=== PATIENT | female | born 1935 | race Caucasian/White ===

== ENCOUNTER 2017-04-14 11:44 | Emergency (ER) | payer BC ==
--- NOTE | 2017-04-14 12:11 | Emergency Department Record ---
History of Present Illness - General Chief Complaint: Back Pain/Injury Stated Complaint: BACK PAIN Time Seen by Provider: 04/14/17 12:00 Source: Patient Mode of Arrival: EMS Limitations: No limitations - History of Present Illness Initial Comments: The patient is here due to back pain for 4 days. The pain onset was after doing a lot of yard work. The pain is an aching pain in the low back and R lower side that is much worse with walking and bending. The pain resolves with lying down. She also has had some numbness and tingling with mild pain to her R leg which started 4 days ago. She is having trouble walking due to the numbness and tingling to the R leg. Presently the pain has resolved. The patient does have a hx of PVD of the R leg and did have a stent placed by Dr. Moore this year in Jun. The patient has only been taking aspirin for pain but has not taken any today. She denies any AP, CP, SOB, JAQUI, trauma or weakness. MD Complaint: Back pain Onset/Timin -: Days(s) Similar Symptoms Previously: Yes Place: Home Radiation: Right leg Severity scale (1-10): 5 Quality: Sharp Improves With: Supine Worsens With: Walking Context: Unknown Associated Symptoms: Denies other symptoms - Related Data Allergies Allergy/AdvReac Type Severity Reaction Status Date / Time No Known Drug Allergies Allergy Verified 06/11/14 15:02 Travel Screening - Travel/Exposure Within Last 30 Days Have you traveled within the last 30 days?: No Review of Systems Constitutional: Denies: Chills, Fever Eyes: Denies: Eye discharge ENT: Denies: Congestion, Throat pain Respiratory: Denies: Cough, Dyspnea Past Medical History - SOCIAL HISTORY Smoking Status: Former smoker Alcohol Use: None Drug Use: None - RESPIRATORY Hx Respiratory Disorders: No - CARDIOVASCULAR Hx Cardio Disorders: Yes Hx Cardiac Cath: Yes (1 stent placed) Hx Heart Attack: Yes - NEURO Hx Neuro Disorders: No - GI Hx GI Disorders: No - Hx Genitourinary Disorders: No - ENDOCRINE Hx Endocrine Disorders: Yes Hx Thyroid Disease: Yes - MUSCULOSKELETAL Hx Musculoskeletal Disorders: Yes Hx Arthritis: Yes - PSYCH Hx Psych Problems: No - HEMATOLOGY/ONCOLOGY Hx Hematology/Oncology Disorders: Yes Hx Cancer: Yes (Cervical) Family Medical History Any Significant Family History?: Yes Hx Cancer: Brother/Sister Hx Diabetes: Brother/Sister *Diabetes Comment: sister DM Hx Heart Disease: Brother/Sister *Heart Comment: sister and brother Hx Stroke: Father Physical Exam - General General Appearance: Alert, Oriented x3, Cooperative, No acute distress - Head Head exam: Atraumatic, Normocephalic - Eye Eye exam: Normal appearance, PERRL - Neck Neck exam: Normal inspection, Full ROM. negative: Tenderness - Respiratory Respiratory exam: Normal lung sounds bilaterally. negative: Respiratory distress - Cardiovascular Cardiovascular Exam: Regular rate, Normal rhythm, Normal heart sounds - GI/Abdominal GI/Abdominal exam: Soft, Normal bowel sounds. negative: Tenderness - Extremities Extremities exam: Other (The R lower leg is mildly numb to light touch and very cool up to the proximal tibial area.). negative: Normal inspection (The R leg is missing part of the foot due to a previous surgery. ), Normal capillary refill Course Vital Signs 04/14/17 11:46 Temperature 97.7 F Pulse Rate 81 Respiratory 20 Rate Blood Pressure 124/61 Pulse Ox 95 - Reevaluation(s) Reevaluation #1: The patient is back from US and the R leg is still painful and slightly numb. The sensation is decreased below the knee and the leg is still cool. The Arterial Doppler test does reveal a problem with the arterial flow below the graft. Because of that the patient will be started on Heparin and be kept NPO and will be transferred to the [place] at [facility] [place]. I did discuss the case with Dr. Byrd and she does accept the transfer to the ER. 04/14/17 14:07 Medical Decision Making - Data Complexity MDM Data: Labs Ordered and/or Reviewed, X-Ray Ordered and/or Reviewed - Lab Data Result diagrams: 04/14/17 12:30 04/14/17 12:30 - Radiology Data Radiology results: Report reviewed (Lumbar spine: Extensive DJD R leg arterial study: Significant decreased arterial flow to the R leg below the graft site.) Disposition Disposition: Transfer Clinical Impression: Vascular insufficiency of limb Disposition: Acute Care Hospital Transfer Transfer To: [facility] Reason For Transfer: Vascular surgery Accepting Physician: Carson Time Discussed w/Accepting Physician: 14:10 Condition: (2) Stable Forms: Patient Portal Access Time of Disposition: 14:10 Quality - Quality Measures Quality Measures: N/A - Blood Pressure Screening View Details: Yes Does Patient Have Any of the Following: No Blood Pressure Classification: Pre-Hypertensive BP Reading Systolic Measurement: 124 Diastolic Measurement: 61 Screening for High Blood Pressure: < Pre-Hypertensive BP, F/U Documented > [ G8950] Pre-Hypertensive Follow-up Interventions: Referral to alternative/primary care provider.
[2017-04-14] MEDS: MORPHINE SULFATE 5 MG/ML PFS IVP ONE ×2 (12:29→14:08)
[2017-04-14] MEDS: ONDANSETRON HCL IV 4 MG/2 ML VIAL IVP ONE (12:30)
[2017-04-14 12:42] LABS: BASO % 0.4 % (0-6); EOS % 1.8 % (0-6); HEMATOCRIT 39.5 % (35.0-47.0); HEMOGLOBIN 12.8 gm/dl (11.6-16.0); LYMPH % 13.6 % (16-45); MEAN CELL VOLUME 87.6 fl (81-97); MEAN CORPUSCULAR HEMOGLOBIN 28.4 pg (27-33); MEAN CORPUSCULAR HGB CONC 32.4 g/dl (32-36); MEAN PLATELET VOLUME 10.3 fl (7.4-10.4); MONO % 10.2 % (0-9); PLATELET COUNT 184 K/uL (130-400); RED BLOOD COUNT 4.51 M/uL (3.80-5.40); RED CELL DISTRIBUTION WIDTH 14.3 % (11.5-14.5); WHITE BLOOD COUNT W/O DIFF 5.7 K/uL (4.2-12.2)
[2017-04-14 12:54] LABS: BLOOD UREA NITROGEN 15 mg/dL (8-23); CREATININE 0.4 mg/dL (0.5-0.9); EST GLOMERULAR FILTRATION RATE > 60 mL/min; GLUCOSE,RANDOM 105 mg/dL (74-109); INR 1.04; PARTIAL THROMBOPLASTIN TIME 28.6 SECONDS (24.5-39.1); PROTHROMBIN TIME (PATIENT) 11.2 SECONDS (9.5-12.1)
[2017-04-14] MEDS: HEPARIN SODIUM/D5W 25,000 UNITS/500 ML BAG IV SCH (14:08)
[2017-04-14] MEDS: HEPARIN SODIUM 1000 UNIT/1 ML 10ML VIAL IVP ONE (14:08)
--- NOTE | 2017-04-15 08:55 | RADIOLOGY REPORT ---
EXAM: LUMBAR SPINE HISTORY: BACK PAIN. TECHNIQUE: Frontal and lateral views of the lumbar spine were obtained. Comparison: None. FINDINGS: Five non-rib bearing lumbar type vertebral bodies. Dextroconvex scoliosis. The vertebral body height is preserved. Minor anterolisthesis of L4 with respect to L5 likely secondary to advanced facet arthropathy at this level. End plate degenerative changes with facet arthropathy and osteophytic spurring throughout the lumbar spine. Vascular calcifications. Right iliac endovascular stent graft in place. IMPRESSION: DEXTROCONVEX SCOLIOSIS. DIFFUSE DEGENERATIVE CHANGE, GREATEST AT THE L4-L5 LEVEL, ABOVE. [facility] [id number] [facility]
--- NOTE | 2017-04-15 09:34 | US UNI ARTERIAL DOPPLER REPORT ---
EXAM: RIGHT LOWER EXTREMITY ARTERIAL DOPPLER ULTRASOUND HISTORY: NUMBNESS AND TINGLING. TECHNIQUE: Transverse and longitudinal sonographic images of the right lower extremity arterial system. Doppler and spectral analysis with color flow was utilized. Comparison: None. FINDINGS: The patient is status post right femoral endovascular stent placement. Doppler and spectral analysis with color flow shows lack of normal waveforms throughout the visualized right femoral artery and including the remainder of the right lower extremity arterial system. No visible areas of normal flow through the stent and to the right lower extremity. Findings likely relate to complete occlusion. This could be confirmed with CTA. Minimal flow is identified in the right common femoral artery, with monophasic waveform and the right profunda artery. IMPRESSION: STATUS POST RIGHT LOWER EXTREMITY ENDOVASCULAR STENT PLACEMENT WITH LACK OF NORMAL FLOW THROUGH THE STENT, WORRISOME FOR COMPLETE OCCLUSION. JOB NUMBER: [id number] [facility]
== END 2017-04-14 14:32 | disposition short-term general hospital (02) ==
LOC: ER 11:44
DX: I74.3 Embolism and thrombosis of arteries of the lower extremities (principal); M54.5 Low back pain; R20.0 Anesthesia of skin; E11.9 Type 2 diabetes mellitus without complications; I25.2 Old myocardial infarction; Z89.431 Acquired absence of right foot; Z87.891 Personal history of nicotine dependence
CPT/HCPCS: 99285 ×2; 96376; 96365; 96375; 85025; 85730; 85610; 80048; 72100; 93926; J2405; J2270

== ENCOUNTER 2017-07-18 02:03 | Emergency (ER) | payer BC ==
--- NOTE | 2017-07-18 02:16 | Emergency Department Record ---
History of Present Illness - General Chief Complaint: Cough Stated Complaint: COUGH Time Seen by Provider: 07/18/17 02:10 Source: Patient Mode of Arrival: EMS Limitations: No limitations - History of Present Illness Initial Comments: 82 yo female presents to ED for evaluation of cough symptoms x 1 week. Patient denies fevers, chills, nausea, or vomiting symptoms. Patient denies previous heart or lung problems. Patient is also concerned about injury to her left foot earlier this morning resulting in pain symptoms with movement. MD Complaint: Cough Onset/Timin -: Week(s) Severity: Moderate Consistency: Intermittent Improves With: Nothing Worsens With: Deep breaths Associated Symptoms: Denies other symptoms Treatments Prior to Arrival: None - Related Data Home Medications Medication Instructions Recorded Confirmed Last Taken Atorvastatin Calcium 40 mg PO QHS 07/18/17 07/18/17 Unknown Diltiazem HCl [Diltiazem ER] 180 mg PO DAILY 07/18/17 07/18/17 Unknown Fentanyl 12 mcg TD Q72H 07/18/17 07/18/17 Unknown Gabapentin [Neurontin] 400 mg PO TID 07/18/17 07/18/17 Unknown Hydrocodone/Acetaminophen [[place] 1 tab PO Q8H PRN 07/18/17 07/18/17 Unknown 5mg/325mg] Pantoprazole Sodium 40 mg PO DAILY 07/18/17 07/18/17 Unknown Previous Rx's Medication Instructions Recorded Doxycycline Hyclate 100 mg PO BID #18 tab. 07/18/17 Allergies Allergy/AdvReac Type Severity Reaction Status Date / Time No Known Drug Allergies Allergy Verified 06/11/14 15:02 Review of Systems Constitutional: Denies: Chills, Fever, Malaise, Night sweats Eyes: Denies: Eye discharge, Eye pain ENT: Denies: Congestion, Ear pain Respiratory: Reports: Cough. Denies: Dyspnea Cardiovascular: Reports: Edema. Denies: Chest pain Endocrine: Denies: Fatigue, Heat or cold intolerance Gastrointestinal: Denies: Abdominal pain, Nausea, Vomiting Genitourinary: Denies: Incontinence, Retention Musculoskeletal: Reports: Arthralgia (left foot pain). Denies: Back pain, Gout , Joint swelling Skin: Denies: Bruising, Change in color Neurological: Denies: Abnormal gait, Confusion, Seizure Psychiatric: Denies: Anxiety Hematological/Lymphatic: Denies: Anemia, Blood Clots Past Medical History - SOCIAL HISTORY Smoking Status: Former smoker Drug Use: None - RESPIRATORY Hx Respiratory Disorders: No - CARDIOVASCULAR Hx Cardio Disorders: Yes Hx Cardiac Cath: Yes (1 stent placed) Hx Heart Attack: Yes - NEURO Hx Neuro Disorders: No - GI Hx GI Disorders: No - Hx Genitourinary Disorders: No - ENDOCRINE Hx Endocrine Disorders: Yes Hx Thyroid Disease: Yes - MUSCULOSKELETAL Hx Musculoskeletal Disorders: Yes Hx Arthritis: Yes - PSYCH Hx Psych Problems: No - HEMATOLOGY/ONCOLOGY Hx Hematology/Oncology Disorders: Yes Hx Cancer: Yes (Cervical) Family Medical History Hx Cancer: Brother/Sister Hx Diabetes: Brother/Sister *Diabetes Comment: sister DM Hx Heart Disease: Brother/Sister *Heart Comment: sister and brother Hx Stroke: Father Physical Exam - General General Appearance: Alert, Oriented x3, Cooperative, No acute distress, Other ( talkative on examination) Limitations: No limitations - Head Head exam: Atraumatic, Normocephalic, Normal inspection Head exam detail: negative: Abrasion, Contusion, Noland's sign, General tenderness, Hematoma, Laceration - Eye Eye exam: Normal appearance. negative: Conjunctival injection, Periorbital swelling, Periorbital tenderness, Scleral icterus - ENT Ear exam: negative: Auricular hematoma, Auricular trauma Nasal Exam: negative: Active bleeding, Discharge, Dried blood, Foreign body Mouth exam: negative: Drooling, Laceration, Muffled voice, Tongue elevation - Neck Neck exam: Normal inspection. negative: Meningismus, Tenderness - Respiratory Respiratory exam: Normal lung sounds bilaterally. negative: Rales, Respiratory distress, Rhonchi, Stridor - Cardiovascular Cardiovascular Exam: Regular rate, Normal rhythm, Normal heart sounds - GI/Abdominal GI/Abdominal exam: Soft. negative: Rebound, Rigid, Tenderness - Rectal Rectal exam: Deferred - exam: Deferred - Extremities Extremities exam: Pedal edema. negative: Calf tenderness, Tenderness - Back Back exam: Denies: CVA tenderness (R), CVA tenderness (L) - Neurological Neurological exam: Alert, Oriented X3. negative: Motor sensory deficit - Psychiatric Psychiatric exam: Normal affect, Normal mood - Skin Skin exam: Normal color. negative: Abrasion Type of lesion: negative: abrasion Course - Reevaluation(s) Reevaluation #1: 07/18/17 02:25 EKG: NSR 94 Normal axis, normal intervals No acute ST-T wave changes Reevaluation #2: 07/18/17 02:53 Left Foot: Degenerative changes, nothing acute CXR: No acute process Reevaluation #3: 07/18/17 03:04 Labs reviewed, WBC 10.6 with 94% Neutrophils, BNP 835. Influenza negative, labs are otherwise grossly unremarkable for an acute process. Will initiate treatment for URI symptoms with Doxycycline as directed. Patient is otherwise well appearing, very talkative with no respiratory distress, and appears stable for discharge at this time. Medical Decision Making - Lab Data Result diagrams: 07/18/17 02:28 07/18/17 02:28 Disposition Disposition: Discharge Clinical Impression: URI (upper respiratory infection) Qualifiers: URI type: unspecified URI Qualified Code(s): J06.9 - Acute upper respiratory infection, unspecified Disposition: Home, Self-Care Condition: (2) Stable Instructions: Upper Respiratory Infection (ED) Additional Instructions: Return to ED if your symptoms worsen or if you have any concerns. Doxycycline as directed. Follow-up with your family doctor in 1-3 days as directed. Prescriptions: Doxycycline Hyclate 100 mg PO BID #18 tab.dr Forms: Patient Portal Access Time of Disposition: 03:08 Quality - Quality Measures Quality Measures: N/A - Blood Pressure Screening Does Patient Have Any of the Following: Active Dx of HTN Blood Pressure Classification: Hypertensive Reading Systolic Measurement: 173 Diastolic Measurement: 75 Screening for High Blood Pressure: Patient Exclusion, Hx of HTN [G9744]
[2017-07-18 02:32] LABS: INFLUENZA A NEGATIVE (NEGATIVE); INFLUENZA B NEGATIVE (NEGATIVE)
[2017-07-18 02:36] LABS: BASO % 0.1 % (0-6); EOS % 0.6 % (0-6); HEMATOCRIT 38.1 % (35.0-47.0); LYMPH % 5.4 % (16-45); MEAN CELL VOLUME 83.4 fl (81-97); MEAN CORPUSCULAR HEMOGLOBIN 26.3 pg (27-33); MEAN CORPUSCULAR HGB CONC 31.5 g/dl (32-36); MEAN PLATELET VOLUME 8.8 fl (7.4-10.4); MONO % 6.9 % (0-9); PLATELET COUNT 342 K/uL (130-400); RED BLOOD COUNT 4.57 M/uL (3.80-5.40); RED CELL DISTRIBUTION WIDTH 14.4 % (11.5-14.5); WHITE BLOOD COUNT W/O DIFF 10.6 K/uL (4.2-12.2)
[2017-07-18 02:46] LABS: BLOOD UREA NITROGEN 11 mg/dL (8-23); CREATININE 0.3 mg/dL (0.5-0.9); EST GLOMERULAR FILTRATION RATE > 60 mL/min
[2017-07-18 02:47] LABS: TOTAL PROTEIN 7.2 g/dL (6.6-8.7)
[2017-07-18 02:49] LABS: GLUCOSE,RANDOM 118 mg/dL (74-109)
[2017-07-18 02:52] LABS: ALB/GLOB RATIO 1.1 (1.1-1.8); ALBUMIN 3.8 g/dL (4.0-5.0); ALKALINE PHOSPHATASE 107 U/L (35-104); ALT/SGPT 7 U/L (<33); AST/SGOT 11 U/L (10.0-35.0)
[2017-07-18] MEDS ORDERED: DOXYCYCLINE HYCLATE 100 MG CAPSULE PO ONE (03:31)
--- NOTE | 2017-07-19 07:40 | RADIOLOGY REPORT ---
EXAM: CHEST, TWO VIEWS HISTORY: PATIENT HAS A SEVERE COUGH. TECHNIQUE: Two views of the chest were provided along with the comparison study dated 06/11/14. FINDINGS: Cardiomegaly is noted. Calcified hilar lymph nodes are identified. Calcified granuloma within the right mid lung field is unchanged with respect to the prior examination. There is no radiographic evidence of a focal infiltrate, pleural effusion, or pneumothorax. Chronic interstitial changes are identified bilaterally. There are findings suggestive of a hiatal hernia. IMPRESSION: STABLE CARDIOMEGALY WITH RESPECT TO THE PRIOR EXAMINATION. J[facility]BER: [id number] [facility]
--- NOTE | 2017-07-19 07:43 | RADIOLOGY REPORT ---
EXAM: LEFT FOOT HISTORY: PATIENT HAS CHRONIC PAIN. TECHNIQUE: Two views of the left foot dated 07/18/17 are provided without comparison examination. FINDINGS: There is no radiographic evidence of a fracture or dislocation of the left foot. Osteopenia of the osseous structures is noted. There is mild to moderate joint space loss with marginal osteophyte formation at the metatarsal phalangeal and interphalangeal joints compatible with osteoarthritic changes. IMPRESSION: OSTEOARTHRITIC CHANGES OF THE LEFT FOOT ARE NOTED WITHOUT RADIOGRAPHIC EVIDENCE OF AN ACUTE PROCESS INVOLVING THE LEFT FOOT. [facility]: [id number] [facility]
== END 2017-07-18 03:38 | disposition home or self-care (01) ==
LOC: ER 02:03
DX: J06.9 Acute upper respiratory infection, unspecified (principal); R05 Cough; M79.672 Pain in left foot; I25.2 Old myocardial infarction; I10 Essential (primary) hypertension; F17.210 Nicotine dependence, cigarettes, uncomplicated
CPT/HCPCS: 71046; 80053; 83880; 85027; 87400; 93005; 93010; 99284

== ENCOUNTER 2018-06-08 06:15 | Inpatient (IN) | payer BC ==
--- NOTE | 2018-06-08 06:38 | Emergency Department Record ---
History of Present Illness - General Chief Complaint: Cough Stated Complaint: COUGHING UP PHLEGM Time Seen by Provider: 06/08/18 06:27 Source: Patient Mode of Arrival: Ambulatory Limitations: No limitations - History of Present Illness Initial Comments: 83 yo female presents to ED for evaluation of weakness symptoms over the past 5 days associated with shortness of breath and cough symptoms. Patient reports increased fatigue and decreased appetite as well. 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 Patient denies chest pain or discomfort symptoms. MD Complaint: Cough Onset/Timin -: Minutes(s) Severity: Moderate Consistency: Constant, Getting worse Improves With: Nothing Worsens With: Activity Associated Symptoms: Cough, Shortness of breath Treatments Prior to Arrival: None - Related Data Home Medications Medication Instructions Recorded Confirmed Last Taken Ergocalciferol (Vitamin D2) 50,000 unit PO MONTHLY 06/08/18 06/08/18 Unknown [Vitamin D2] Gabapentin [Neurontin] 100 mg PO TID 06/08/18 06/08/18 Unknown Herb-Lax 4 tab PO DAILY 06/08/18 06/08/18 Unknown Prebiotic 500 1 tab PO DAILY 06/08/18 06/08/18 Unknown Visionary Vitamin 2 tab PO DAILY 06/08/18 06/08/18 Unknown Allergies Allergy/AdvReac Type Severity Reaction Status Date / Time No Known Drug Allergies Allergy Verified 06/11/14 15:02 Travel Screening - Travel/Exposure Within Last 30 Days Have you traveled within the last 30 days?: No Review of Systems Constitutional: Reports: Malaise, Weakness. Denies: Chills, Fever, Night sweats Eyes: Denies: Eye discharge, Eye pain ENT: Denies: Congestion, Ear pain, Epistaxis Respiratory: Reports: Cough, Dyspnea. Denies: Wheezes Cardiovascular: Reports: Dyspnea on exertion. Denies: Chest pain, Edema Endocrine: Reports: Fatigue. Denies: Heat or cold intolerance Gastrointestinal: Denies: Abdominal pain, Nausea, Vomiting Genitourinary: Denies: Incontinence, Retention Musculoskeletal: Denies: Arthralgia, Back pain Skin: Denies: Bruising, Change in color Neurological: Denies: Abnormal gait, Confusion, Headache, Seizure Psychiatric: Denies: Anxiety Hematological/Lymphatic: Denies: Anemia, Blood Clots Past Medical History - SOCIAL HISTORY Smoking Status: Former smoker Alcohol Use: None Drug Use: None - RESPIRATORY Hx Respiratory Disorders: No - CARDIOVASCULAR Hx Cardio Disorders: Yes Hx Cardiac Cath: Yes (1 stent placed) Hx Heart Attack: Yes - NEURO Hx Neuro Disorders: No - GI Hx GI Disorders: No - Hx Genitourinary Disorders: No - ENDOCRINE Hx Endocrine Disorders: Yes Hx Thyroid Disease: Yes - MUSCULOSKELETAL Hx Musculoskeletal Disorders: Yes Hx Arthritis: Yes - PSYCH Hx Psych Problems: No - HEMATOLOGY/ONCOLOGY Hx Hematology/Oncology Disorders: Yes Hx Cancer: Yes (Cervical) Family Medical History Any Significant Family History?: Yes Hx Cancer: Brother/Sister Hx Diabetes: Brother/Sister *Diabetes Comment: sister DM Hx Heart Disease: Brother/Sister *Heart Comment: sister and brother Hx Stroke: Father Physical Exam - General General Appearance: Alert, Oriented x3, Cooperative, Moderate distress (Patient' s RA oxygen saturation 74% on arrival) Limitations: No limitations - Head Head exam: Atraumatic, Normocephalic, Normal inspection Head exam detail: negative: Abrasion, Contusion, Noland's sign, General tenderness, Hematoma, Laceration - Eye Eye exam: Normal appearance. negative: Conjunctival injection, Periorbital swelling, Periorbital tenderness, Scleral icterus - ENT Ear exam: negative: Auricular hematoma, Auricular trauma Nasal Exam: negative: Active bleeding, Discharge, Dried blood, Foreign body Mouth exam: negative: Drooling, Laceration, Muffled voice, Tongue elevation - Neck Neck exam: Normal inspection. negative: Meningismus, Tenderness - Respiratory Respiratory exam: Decreased breath sounds. negative: Rales, Respiratory distress, Rhonchi, Stridor - Cardiovascular Cardiovascular Exam: Regular rate, Normal rhythm, Normal heart sounds - GI/Abdominal GI/Abdominal exam: Soft. negative: Rebound, Rigid, Tenderness - Rectal Rectal exam: Deferred - exam: Deferred - Extremities Extremities exam: Other (BKA right). negative: Pedal edema, Tenderness - Back Back exam: Denies: CVA tenderness (R), CVA tenderness (L) - Neurological Neurological exam: Alert, Oriented X3. negative: Motor sensory deficit - Psychiatric Psychiatric exam: Normal affect, Normal mood - Skin Skin exam: Normal color. negative: Abrasion Type of lesion: negative: abrasion Course Vital Signs 06/08/18 06/08/18 06:18 06:24 Temperature 98.5 F Pulse Rate [ 99 H Pulse Ox Probe] Respiratory 28 H Rate Blood Pressure 139/61 [Left Arm] Pulse Ox 74 L 94 L - Reevaluation(s) Reevaluation #1: 06/08/18 06:55 EKG: NSR 96 Normal axis, normal intervals No acute ST-T wave changes Reevaluation #2: 06/08/18 06:56 Hgb reported to be 8.9, previous 07/08 12.0. Type and screen ordered. WBC 12.3. Troponin 0.055 BNP 2628 Reevaluation #3: 06/08/18 07:12 CXR: Cardiomegaly Probable CHF Reevaluation #4: 06/08/18 07:32 Case was discussed with Dr. Pagan, will accept admission at this time. Will hold antibiotics pending CXR interpretation. Medical Decision Making - Lab Data Result diagrams: 06/08/18 06:35 06/08/18 06:35 Disposition Disposition: Admit Clinical Impression: Elevated troponin Anemia Qualifiers: Anemia type: unspecified type Qualified Code(s): D64.9 - Anemia, unspecified CHF (congestive heart failure) Qualifiers: Heart failure type: unspecified Heart failure chronicity: acute Qualified Code( s): I50.9 - Heart failure, unspecified Disposition: Still a Patient at [facility] Decision to Admit: Admit from ER Decision to Admit Date: 06/08/18 Decision to Admit Time: 07:33 Condition: (2) Stable Forms: Patient Portal Access Time of Disposition: 07:33 Quality - Quality Measures Quality Measures: N/A - Blood Pressure Screening Does Patient Have Any of the Following: Active Dx of HTN Blood Pressure Classification: Pre-Hypertensive BP Reading Systolic Measurement: 131 Diastolic Measurement: 55 Screening for High Blood Pressure: Patient Exclusion, Hx of HTN [G9744]
[2018-06-08 06:45] LABS: HEMATOCRIT 33.5 % (35.0-47.0); HEMOGLOBIN 8.9 gm/dl (11.6-16.0); MEAN CELL VOLUME 76.8 fl (81-97); MEAN CORPUSCULAR HEMOGLOBIN 20.4 pg (27-33); MEAN CORPUSCULAR HGB CONC 26.6 g/dl (32-36); MEAN PLATELET VOLUME 9.4 fl (7.4-10.4); PLATELET COUNT 256 K/uL (130-400); RED BLOOD COUNT 4.36 M/uL (3.80-5.40); RED CELL DISTRIBUTION WIDTH 19.4 % (11.5-14.5); WHITE BLOOD COUNT W/O DIFF 12.3 K/uL (4.2-12.2)
[2018-06-08 06:54] LABS: BLOOD UREA NITROGEN 23 mg/dL (8-23); CREATININE 0.5 mg/dL (0.5-0.9); EST GLOMERULAR FILTRATION RATE > 60 mL/min; HYPOCHROMIA 1+
[2018-06-08 06:55] LABS: TOTAL PROTEIN 7.4 g/dL (6.6-8.7)
[2018-06-08 06:57] LABS: GLUCOSE,RANDOM 130 mg/dL (74-109)
[2018-06-08 06:59] LABS: ALT/SGPT 18 U/L (<33); AST/SGOT 19 U/L (10.0-35.0)
[2018-06-08 07:00] LABS: ALB/GLOB RATIO 1.2 (1.1-1.8); ALBUMIN 4.1 g/dL (4.0-5.0); ALKALINE PHOSPHATASE 158 U/L (35-104)
[2018-06-08] MEDS ORDERED: ASPIRIN 81 MG CHEWABLE TABLET PO ONE (07:29)
[2018-06-08 07:46] LABS: ABO GROUP A; ANTIBODY SCREEN NEGATIVE (NEGATIVE); RH TYPE POSITIVE
[2018-06-08] MEDS ORDERED: 0.9 % SODIUM CHLORIDE 1000ML 1,000 ML IV PRN (08:54)
[2018-06-08] MEDS ORDERED: HYDROCODONE/APAP 5/325MG TABLET PO PRN (08:54)
[2018-06-08] MEDS: PANTOPRAZOLE SODIUM 40 MG TABLET PO SCH (10:44)
[2018-06-08] MEDS: GABAPENTIN 300 MG CAPSULE PO SCH ×2 (10:44→21:54)
[2018-06-08] MEDS: CLOPIDOGREL 75MG TABLET PO SCH (10:44)
[2018-06-08] MEDS: DILTIAZEM 180MG CR CAPSULE PO SCH (10:44)
[2018-06-08] MEDS: LEVOTHYROXINE SODIUM 25 MCG TABLET PO SCH (10:44)
[2018-06-08] MEDS: GABAPENTIN 100 MG CAPSULE PO SCH ×2 (10:45→21:54)
--- NOTE | 2018-06-08 10:59 | History & Physical ---
History of Present Illness - Date of Service Date of Service for History & Physical: 06/08/18 - History of Present Illness Admitting Diagnosis: Moderate Anemia. Elevated troponin. Congestive wilkerson failure History of Present Illness: Mrs Wren is a 83 y/o female who came in due to worsening cough and shortness of breath beginning last . The patient says her symptoms initially began with becoming short of breath while lying flat. She says that she couldn' t lay flat and had to prop herself up on pillows. She then started to have a cough productive of yellow/white sputum which eventually got worse over the past three days. She also noted that she had a loss of appetite but denies fevers, chills or chest pain. The patient says that she has had heart stent placed but has no history of heart failure. She also notes a 40 pack year smoking history quitting in 2004 but has never been diagnosed with COPD. On arrival to the ED the patient had oxygen saturation at 74 % and required nasal cannula oxygen of 5 liters to sustained saturations > 90%. Chest xray was suggestive of interstitial and vascular markings and the right mid lung shows an opacified area. Her labs show mild elevation of WBCs 12.3, Hgb 0.055, BNP 2, 628, and a normal EKG. The patient is admitted for serial troponins, and cardiac workup. PCP: Dr. Chen Travel Screening - Travel/Exposure Within Last 30 Days Have you traveled within the last 30 days?: No - Travel/Exposure Within Last Year Have you traveled outside the [place] in the last year?: No - Additonal Travel Details Have you been exposed to anyone with a communicable illness?: No - Travel Symptoms Symptom Screening: None Review of Systems Constitutional: Reports: Malaise, Weakness. Denies: Chills, Fever, Night sweats Eyes: Denies: Eye discharge, Eye pain ENT: Denies: Congestion, Ear pain, Epistaxis Respiratory: Reports: Cough, Dyspnea. Denies: Wheezes Cardiovascular: Reports: Dyspnea on exertion. Denies: Chest pain, Edema Endocrine: Reports: Fatigue. Denies: Heat or cold intolerance Gastrointestinal: Denies: Abdominal pain, Nausea, Vomiting Genitourinary: Denies: Incontinence, Retention Musculoskeletal: Denies: Arthralgia, Back pain Skin: Denies: Bruising, Change in color Neurological: Denies: Abnormal gait, Confusion, Headache, Seizure Psychiatric: Denies: Anxiety Hematological/Lymphatic: Denies: Anemia, Blood Clots Past Medical History - SOCIAL HISTORY Smoking Status: Former smoker - RESPIRATORY Hx Respiratory Disorders: No - CARDIOVASCULAR Hx Cardio Disorders: Yes Hx Cardiac Cath: Yes (1 stent placed) Hx Heart Attack: Yes - NEURO Hx Neuro Disorders: No - GI Hx GI Disorders: No - Hx Genitourinary Disorders: No - ENDOCRINE Hx Endocrine Disorders: Yes Hx Thyroid Disease: Yes - MUSCULOSKELETAL Hx Musculoskeletal Disorders: Yes Hx Arthritis: Yes - PSYCH Hx Psych Problems: No - HEMATOLOGY/ONCOLOGY Hx Hematology/Oncology Disorders: Yes Hx Cancer: Yes (Cervical) Family Medical History Any Significant Family History?: Yes Hx Cancer: Brother/Sister Hx Diabetes: Brother/Sister *Diabetes Comment: sister DM Hx Heart Disease: Brother/Sister *Heart Comment: sister and brother Hx Stroke: Father H&P Meds/Allergies - Allergies Allergies: Allergies Allergy/AdvReac Type Severity Reaction Status Date / Time No Known Drug Allergies Allergy Verified 06/11/14 15:02 - Home Medications Home Medications Medication Instructions Recorded Confirmed Last Taken Ergocalciferol (Vitamin D2) 50,000 unit PO MONTHLY 06/08/18 06/08/18 Unknown [Vitamin D2] Gabapentin [Neurontin] 100 mg PO TID 06/08/18 06/08/18 Unknown Herb-Lax 4 tab PO DAILY 06/08/18 06/08/18 Unknown Prebiotic 500 1 tab PO DAILY 06/08/18 06/08/18 Unknown Visionary Vitamin 2 tab PO DAILY 06/08/18 06/08/18 Unknown - Active Medications Active Medications: Current Medications Hydrocodone Bitart/Acetaminophen ([place] 5mg/325mg) 1 each PO Q8H PRN PRN Reason: PAIN - MOD TO SEVERE (5-10) Aspirin (Ecotrin (Ec)) 325 mg PO DAILY [facility] Atorvastatin Calcium (Lipitor) 40 mg PO QHS [facility] Azithromycin (Zithromax) 500 mg PO DAILY [facility] Clopidogrel Bisulfate (Plavix) 75 mg PO DAILY [facility] Last Admin: 06/08/18 10:44 Dose: 75 mg Diltiazem HCl (Cardizem Cd) 180 mg PO DAILY [facility] Last Admin: 06/08/18 10:44 Dose: 180 mg Gabapentin (Neurontin) 300 mg PO BID [facility] Last Admin: 06/08/18 10:44 Dose: 300 mg Gabapentin (Neurontin) 200 mg PO BID [facility] Last Admin: 06/08/18 10:45 Dose: 200 mg Sodium Chloride () 1,000 mls @ 15 mls/hr IV .Q24H PRN PRN Reason: LARGE VOLUME IV Ceftriaxone Sodium 1 gm/ (Sodium Chloride) 100 mls @ 200 mls/hr IVPB Q24H [facility] Stop: 06/13/18 11:01 Levothyroxine Sodium (Synthroid) 25 mcg PO DAILYTHY [facility] Last Admin: 06/08/18 10:44 Dose: 25 mcg Pantoprazole Sodium (Protonix) 40 mg PO DAILYAC [facility] Last Admin: 06/08/18 10:44 Dose: 40 mg Physical Exam - Vital Signs Vital Signs: Vital Signs - Last 24 Hrs Temp Pulse Pulse Resp BP BP Pulse Ox 06/08/18 09:00 20 06/08/18 08:36 102 H 18 117/70 92 L 06/08/18 08:25 98.3 F 91 H 20 124/51 95 06/08/18 07:20 97 H 28 H 131/55 98 06/08/18 06:24 98.5 F 99 H 28 H 139/61 94 L 06/08/18 06:18 74 L - General General Appearance: Alert, Oriented x3, Cooperative, Moderate distress (Patient' s RA oxygen saturation 74% on arrival) Limitations: No limitations - Head Head exam: Atraumatic, Normocephalic, Normal inspection Head exam detail: negative: Abrasion, Contusion, Noland's sign, General tenderness, Hematoma, Laceration - Eye Eye exam: Normal appearance. negative: Conjunctival injection, Periorbital swelling, Periorbital tenderness, Scleral icterus - ENT Ear exam: negative: Auricular hematoma, Auricular trauma Nasal Exam: negative: Active bleeding, Discharge, Dried blood, Foreign body Mouth exam: negative: Drooling, Laceration, Muffled voice, Tongue elevation - Neck Neck exam: Normal inspection. negative: Meningismus, Tenderness - Respiratory Respiratory exam: Decreased breath sounds. negative: Rales, Respiratory distress, Rhonchi, Stridor - Cardiovascular Cardiovascular Exam: Regular rate, Normal rhythm, Normal heart sounds Peripheral Pulses: 3+: Radial (R), Radial (L), Dorsalis Pedis (R), Dorsalis Pedis (L) - GI/Abdominal GI/Abdominal exam: Soft. negative: Rebound, Rigid, Tenderness - Rectal Rectal exam: Deferred - exam: Deferred - Extremities Extremities exam: Other (BKA right). negative: Pedal edema, Tenderness - Back Back exam: Denies: CVA tenderness (R), CVA tenderness (L) - Neurological Neurological exam: Alert, Oriented X3. negative: Motor sensory deficit - Psychiatric Psychiatric exam: Normal affect, Normal mood - Skin Skin exam: Normal color. negative: Abrasion Type of lesion: negative: abrasion Results - Labs Result Diagrams: 06/08/18 06:35 06/08/18 06:35 Labs Last 24 Hours: Laboratory Results - last 24 hr 06/08/18 06/08/18 06/08/18 06:35 06:35 06:35 WBC 12.3 H RBC 4.36 Hgb 8.9 L Hct 33.5 L MCV 76.8 L MCH 20.4 L MCHC 26.6 L RDW 19.4 H Plt Count 256 MPV 9.4 Neutrophils % 80.0 Band Neutrophils % 0.0 Eosinophils % Not Reportable Basophils % Not Reportable Lymphocytes 9.0 L Monocytes 11.0 H Basophils 0.0 Hypochromasia 1+ Eosinophil Count 0.0 Sodium 144 Potassium 4.3 Chloride 100 Carbon Dioxide 32.0 H Anion Gap 12.0 BUN 23 Creatinine 0.5 Estimated GFR > 60 Random Glucose 130 H Calcium 9.0 Total Bilirubin 0.70 AST 19 ALT 18 Alkaline Phosphatase 158 H Troponin T 0.055 H NT-Pro-B Natriuret Pep 2628.00 H Total Protein 7.4 Albumin 4.1 Globulin 3.3 Albumin/Globulin Ratio 1.2 ABO Group A Rh Factor Positive Antibody Screen Negative 06/08/18 06:38 WBC RBC Hgb Hct MCV MCH MCHC RDW Plt Count MPV Neutrophils % Band Neutrophils % Eosinophils % Basophils % Lymphocytes Monocytes Basophils Hypochromasia Eosinophil Count Sodium Potassium Chloride Carbon Dioxide Anion Gap BUN Creatinine Estimated GFR Random Glucose Calcium Total Bilirubin AST ALT Alkaline Phosphatase Troponin T NT-Pro-B Natriuret Pep Cancelled Total Protein Albumin Globulin Albumin/Globulin Ratio ABO Group Rh Factor Antibody Screen VTE H&P Assessment - Risk for VTE Risk for VTE: Yes Risk Level: High Risk Assessment Date: 06/08/18 Risk Assessment Time: 11:02 VTE Orders Placed or Will Be Placed: Yes Plan - Inpatient Certification Inpatient Certification: Admit to inpatient care: Based on my medical assessment, after consideration of patient's risk factors (age, co-morbidities and patient presenting symptoms and acuity), I expect that this patient will remain in the hospital greater than or equal to two midnights and that the services needed warrant inpatient care because: Patient Risk Factors: Pneumonia, Estimated length of stay: 3 days The patient may reasonably be expected to be discharged or transferred to a hospital within 96 hours after admission to [facility]. I certify that my determination is in accordance with my understanding of Medicare requirements for reasonable and necessary inpatient services. 06/08/18 11:02 - Detailed Diagnosis and Plan (1) Pulmonary vascular congestion Current Visit: Yes Status: Acute Base Code: R09.89 - OTH SYMPTOMS AND SIGNS INVOLVING THE CIRC AND RESP SYSTEMS Comment: 06/08/18: - No hx of CHF, ECG: NSR, no acute findings. - BNP 2628, troponin elevated x 1, with serial labs pending. - CXR suggestive of vascular congestion and edema. - Resuming Cardizem, ASA/Plavix, Atorvastatin. Lasix 20mg daily - 2D echo ordered, Cardiology consulted. (2) Community acquired pneumonia Current Visit: Yes Status: Acute Base Code: J18.9 - PNEUMONIA, UNSPECIFIED ORGANISM Comment: 06/08/18: - No hospitalizations within [facility] 90 days. - Symptoms of productive cough and respiratory distress. - CXR suggestive of opacity in the right middle lobe. - Titrate oxygen to maintain sats > 92% - Start Ceftiraxone 1gm IV Q24H and Zithromax 500mg PO Q24H - Repeat labs in the morning. (3) Elevated troponin Current Visit: Yes Status: Acute Base Code: R74.8 - ABNORMAL LEVELS OF OTHER SERUM ENZYMES Comment: 06/08/18: - 0.055, serial troponins pending. CXR: notes vascular congestion. 2D echo ordered. - ECG: NSR, no acute changes. On exchange administrator. - Hx of CAD s/p stent to mid 2008 - Resuming home medications; CCB, ASA, Plavix, Statin - Cardiology consulted (4) Anemia Current Visit: Yes Status: Acute Qualifiers: Anemia type: unspecified type Qualified Code(s): D64.9 - Anemia, unspecified Base Code: D64.9 - ANEMIA, UNSPECIFIED Comment: 06/08/18: - Hgb 8.9, - Fecal occult blood pending. Check Iron, TIBC and Ferritin on am labs. - Continue with dual antiplatelet therapy. (5) CAD (coronary artery disease) Current Visit: Yes Status: Acute Base Code: I25.10 - ATHSCL HEART DISEASE OF [place] CORONARY ARTERY W/O ANG PCTRS Comment: 06/08/18: - S/p stent to the mid RCA 2008. - On Cardizem 180mg daily, Atorvastatin 40mg QHS, DAPT w/ ASA/Plavix - Troponinin trending, 2D echo ordered - Cardiology consulted. (6) Hypothyroid Current Visit: Yes Status: Acute Base Code: E03.9 - HYPOTHYROIDISM, UNSPECIFIED Comment: 06/08/18: - resume home dose of Levothyroxine. (7) PVD (peripheral vascular disease) Current Visit: Yes Status: Acute Base Code: I73.9 - PERIPHERAL VASCULAR DISEASE, UNSPECIFIED Comment: 06/08/18: - on ASA,Plavix, Statin (8) Status post bilateral below knee amputation Current Visit: Yes Status: Acute Base Code: Z89.512 - ACQUIRED ABSENCE OF LEFT LEG BELOW KNEE; Z89.511 - ACQUIRED ABSENCE OF RIGHT LEG BELOW KNEE Comment: 06/08/19: - As a result of PVD - Pt uses prosthetic device to ambulate. 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 (10) DVT prophylaxis Current Visit: Yes Status: Acute Base Code: [id number] - Comment: 06/08/18: - Lovenox 40 mg daily. (11) Full code status Current Visit: Yes Status: Acute Base Code: Z78.9 - OTHER SPECIFIED HEALTH STATUS Comment: 06/08/18: - Full code status.
[2018-06-08] MEDS ORDERED: PATIENT OWN MED: MC SCH (12:15)
[2018-06-08] MEDS ORDERED: ZINC OXIDE 28.35 GM TUBE TOP ONE (12:16)
[2018-06-08] MEDS: AZITHROMYCIN 500 MG TABLET PO SCH (12:38)
[2018-06-08] MEDS: FUROSEMIDE 20 MG TABLET PO SCH (12:38)
[2018-06-08] MEDS: CEFTRIAXONE 1GM/50ML BAG 1 GM/50 ML BAG IVPB SCH (12:40)
[2018-06-08] MEDS ORDERED: HYDROCORTISONE 1% CREAM 28.35 GM TUBE TOP PRN (13:56)
[2018-06-08] MEDS ORDERED: FUROSEMIDE 20 MG TABLET PO ONE (17:22)
[2018-06-08] MEDS: GUAIFENESIN 600 MG TABCR PO SCH ×2 (17:57→21:56)
[2018-06-08] MEDS: ALBUTEROL SULFATE (0.083%) 2.5 MG/3 ML NEB INH PRN ×2 (18:08→22:07)
[2018-06-08 20:30] LABS: HEMATOCRIT 31.4 % (35.0-47.0); HEMOGLOBIN 8.2 gm/dl (11.6-16.0)
[2018-06-08] MEDS: ATORVASTATIN 20 MG TABLET PO SCH (21:54)
[2018-06-08] MEDS: TYLENOL 650 MG PO SCH (21:56)
[2018-06-09 00:20] LABS: ARTERIAL BLD GAS O2 SATURATION 98.2 % (95-98); ARTERIAL BLOOD GAS BASE EXCESS 8.1 mmol/L (-2 - 3); ARTERIAL BLOOD GAS HCO3 34.8 mmol/L (18-23); ARTERIAL BLOOD GAS PCO2 69.3 mmHg (35-48); ARTERIAL BLOOD GAS pH 7.32 (7.35-7.45); CARBOXYHEMOGLOBIN 2.5 % (0-1.5); METHEMOGLOBIN 0.3 % (0.0-1.5); O2 HEMOGLOBIN 95.4 % vol (94-99); TOTAL HEMOGLOBIN 7.5 g/dl (11.6-16)
[2018-06-09] MEDS: ALBUTEROL SULFATE (0.083%) 2.5 MG/3 ML NEB INH PRN (05:58)
[2018-06-09 06:37] LABS: HEMATOCRIT 31.4 % (35.0-47.0); HEMOGLOBIN 8.1 gm/dl (11.6-16.0); MEAN CELL VOLUME 78.5 fl (81-97); MEAN CORPUSCULAR HGB CONC 25.8 g/dl (32-36); PLATELET COUNT 222 K/uL (130-400); RED CELL DISTRIBUTION WIDTH 19.3 % (11.5-14.5); WHITE BLOOD COUNT W/O DIFF 8.2 K/uL (4.2-12.2)
[2018-06-09 06:42] LABS: MEAN CORPUSCULAR HEMOGLOBIN 20.2 pg (27-33)
[2018-06-09 06:43] LABS: HYPOCHROMIA 1+
[2018-06-09 06:56] LABS: BLOOD UREA NITROGEN 19 mg/dL (8-23); CREATININE 0.5 mg/dL (0.5-0.9); EST GLOMERULAR FILTRATION RATE > 60 mL/min; GLUCOSE,RANDOM 107 mg/dL (74-109)
--- NOTE | 2018-06-09 08:54 | RADIOLOGY REPORT ---
EXAM: CHEST, TWO VIEWS HISTORY: DIFFICULTY IN BREATHING. TECHNIQUE: Frontal and lateral views of the chest were performed. Comparison: 07/18/17. FINDINGS: There is cardiomegaly, pulmonary vascular congestion and interstitial edema. There are calcified granulomas and calcified lymph nodes. Findings suggestive of congestive heart failure. IMPRESSION: 1. FINDINGS SUGGESTIVE OF CONGESTIVE HEART FAILURE. 2. 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 JOB NUMBER: [id number] [facility]
--- NOTE | 2018-06-09 09:12 | Physician Progress Note ---
Subjective - Date Date of Physician Progress Note: 06/09/18 Objective - Vital Signs Vital Signs: Vital Signs - Last 24 Hrs Temp Pulse Pulse Resp BP Pulse Ox 06/09/18 06:03 78 27 H 91 L 06/09/18 05:32 98.1 F 83 16 122/49 92 L 06/08/18 22:11 78 16 93 L 06/08/18 22:08 74 16 06/08/18 22:06 97.3 F L 92 H 18 112/61 88 L 06/08/18 21:00 18 06/08/18 18:00 93 H 18 06/08/18 16:00 99.0 F 87 16 132/47 88 L - General General Appearance: Alert, Oriented x3, Cooperative, Moderate distress (Patient' s RA oxygen saturation 74% on arrival) Limitations: No limitations - Head Head exam: Atraumatic, Normocephalic, Normal inspection Head exam detail: negative: Abrasion, Contusion, Noland's sign, General tenderness, Hematoma, Laceration - Eye Eye exam: Normal appearance. negative: Conjunctival injection, Periorbital swelling, Periorbital tenderness, Scleral icterus - ENT Ear exam: negative: Auricular hematoma, Auricular trauma Nasal Exam: negative: Active bleeding, Discharge, Dried blood, Foreign body Mouth exam: negative: Drooling, Laceration, Muffled voice, Tongue elevation - Neck Neck exam: Normal inspection. negative: Meningismus, Tenderness - Respiratory Respiratory exam: Decreased breath sounds. negative: Rales, Respiratory distress, Rhonchi, Stridor - Cardiovascular Cardiovascular Exam: Regular rate, Normal rhythm, Normal heart sounds Peripheral Pulses: 3+: Radial (R), Radial (L), Dorsalis Pedis (R), Dorsalis Pedis (L) - GI/Abdominal GI/Abdominal exam: Soft. negative: Rebound, Rigid, Tenderness - Rectal Rectal exam: Deferred - exam: Deferred - Extremities Extremities exam: Other (BKA right). negative: Pedal edema, Tenderness - Back Back exam: Denies: CVA tenderness (R), CVA tenderness (L) - Neurological Neurological exam: Alert, Oriented X3. negative: Motor sensory deficit - Psychiatric Psychiatric exam: Normal affect, Normal mood - Skin Skin exam: Normal color. negative: Abrasion Type of lesion: negative: abrasion Assessment and Plan - Assessment and Plan (1) Pulmonary vascular congestion Current Visit: Yes Status: Acute Base Code: R09.89 - OTH SYMPTOMS AND SIGNS INVOLVING THE CIRC AND RESP SYSTEMS Comment: 06/09/18: - No hx of CHF, ECG: NSR, no acute findings. - BNP 2628, troponin 0.055 -->0.06--> 0.07 - CXR suggestive of vascular congestion and edema. - Resuming Cardizem, ASA/Plavix, Atorvastatin. Lasix 20mg daily - 2D echo with preserved EF and diastolic dysfunction, - Outpatient Cardiology workup recommended. (2) Community acquired pneumonia Current Visit: Yes Status: Acute Base Code: J18.9 - PNEUMONIA, UNSPECIFIED ORGANISM Comment: 06/09/18: - No hospitalizations within [facility] 90 days. - Symptoms of productive cough and respiratory distress. - CXR suggestive of opacity in the right middle lobe. - Titrate oxygen to maintain sats > 92%. Patient desaturated to low 70 's overnight and was placed on NIPPV with Fio2 35%. Sats improved to 91%. Currently on 5L oxygen and maintaining sats > 95%. NIPPV PRN if sats not at goal. - Start Ceftiraxone 1gm IV Q24H and Zithromax 500mg PO Q24H - Repeat labs in the morning. (3) Elevated troponin Current Visit: Yes Status: Acute Base Code: R74.8 - ABNORMAL LEVELS OF OTHER SERUM ENZYMES Comment: 06/09/18: - 0.055, serial troponins 0.06-->0.07. CXR: notes vascular congestion. 2D echo : preserved EF 55-60%, Grade I diastolic dysfunction. - ECG: NSR, no acute changes. No changes on monitor - Hx of CAD s/p stent to mid RCA 2008 - Resuming home medications; CCB, ASA, Plavix, Statin - Cardiology reviewed and recommend continuing treatment as ordered. No acute intervention needed. (4) Anemia Current Visit: Yes Status: Acute Qualifiers: Anemia type: unspecified type Qualified Code(s): D64.9 - Anemia, unspecified Base Code: D64.9 - ANEMIA, UNSPECIFIED Comment: 06/09/18: - Hgb 8.9, - Fecal occult blood pending. Serum Fe, Ferritin, TIBC - Continue with dual antiplatelet therapy. (5) CAD (coronary artery disease) Current Visit: Yes Status: Acute Base Code: I25.10 - ATHSCL HEART DISEASE OF [place] CORONARY ARTERY W/O ANG PCTRS Comment: 06/09/18: - S/p stent to the mid RCA 2008. - On Cardizem 180mg daily, Atorvastatin 40mg QHS, DAPT w/ ASA/Plavix - Troponinin 0.05, 0.06,0.07 2D echoL diastolic HF, tight BP control (6) Hypothyroid Current Visit: Yes Status: Acute Base Code: E03.9 - HYPOTHYROIDISM, UNSPECIFIED Comment: 06/09/18: - resume home dose of Levothyroxine. (7) PVD (peripheral vascular disease) Current Visit: Yes Status: Acute Base Code: I73.9 - PERIPHERAL VASCULAR DISEASE, UNSPECIFIED Comment: 06/09/18: - on ASA,Plavix, Statin (8) Status post bilateral below knee amputation Current Visit: Yes Status: Acute Base Code: Z89.512 - ACQUIRED ABSENCE OF LEFT LEG BELOW KNEE; Z89.511 - ACQUIRED ABSENCE OF RIGHT LEG BELOW KNEE Comment: 06/09/19: - As a result of PVD - Pt uses prosthetic device to ambulate. 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 (10) DVT prophylaxis Current Visit: Yes Status: Acute Base Code: [id number] - Comment: 06/09/18: - Lovenox 40 mg daily. (11) Full code status Current Visit: Yes Status: Acute Base Code: Z78.9 - OTHER SPECIFIED HEALTH STATUS Comment: 06/09/18: - Full code status. Results - Labs Result Diagrams: 06/09/18 06:22 06/09/18 06:22 Labs Last 24 Hours: Laboratory Results - last 24 hr 06/08/18 06/08/18 06/08/18 12:00 19:40 20:25 WBC RBC Hgb 8.2 L Hct 31.4 L MCV MCH MCHC RDW Plt Count MPV Neutrophils % Band Neutrophils % Eosinophils % Basophils % Lymphocytes Monocytes Basophils Hypochromasia Eosinophil Count Puncture Site pCO2 pO2 HCO3 Oxyhemoglobin ABG pH ABG O2 Saturation ABG Base Excess Xu Test Carboxyhemoglobin Methemoglobin Total Hemoglobin Actual Respiration Rate FiO2 Sodium Potassium Chloride Carbon Dioxide Anion Gap BUN Creatinine Estimated GFR Random Glucose Calcium Troponin T 0.065 H 0.070 H 06/09/18 06/09/18 06/09/18 00:18 06:22 06:22 WBC 8.2 RBC 4.00 Hgb 8.1 L Hct 31.4 L MCV 78.5 L MCH 20.2 L MCHC 25.8 L RDW 19.3 H Plt Count 222 MPV 9.0 Neutrophils % 75.0 Band Neutrophils % 0.0 Eosinophils % Not Reportable Basophils % Not Reportable Lymphocytes 10.0 L Monocytes 14.0 H Basophils 0.0 Hypochromasia 1+ Eosinophil Count 1.0 Puncture Site Right brachial pCO2 69.3 H pO2 100.0 HCO3 34.8 H Oxyhemoglobin 95.4 ABG pH 7.32 L ABG O2 Saturation 98.2 H ABG Base Excess 8.1 H Xu Test Not Reportable Carboxyhemoglobin 2.5 H Methemoglobin 0.3 Total Hemoglobin 7.5 L Actual Respiration Rate 12.0 FiO2 Not Reportable Sodium 145 Potassium 3.8 Chloride 101 Carbon Dioxide 34.0 H Anion Gap 10.0 BUN 19 Creatinine 0.5 Estimated GFR > 60 Random Glucose 107 Calcium 8.3 L Troponin T DVT/PE Assessment - Risk for VTE Risk for VTE: No Risk Level: High Risk Assessment Date: 06/08/18 Risk Assessment Time: 11:02 VTE Orders Placed or Will Be Placed: Yes - Active Medicaitons Current Medications: Current Medications Hydrocodone Bitart/Acetaminophen ([place] 5mg/325mg) 1 each PO Q8H PRN PRN Reason: PAIN - MOD TO SEVERE (5-10) Albuterol Sulfate (Albuterol Sulfate) 2.5 mg INH RESP.Q4H.WA PRN PRN Reason: DIFFICULTY IN BREATHING Last Admin: 06/09/18 05:58 Dose: 2.5 mg Aspirin (Ecotrin (Ec)) 325 mg PO DAILY [facility] Atorvastatin Calcium (Lipitor) 40 mg PO QHS [facility] Last Admin: 06/08/18 21:54 Dose: 40 mg Azithromycin (Zithromax) 500 mg PO DAILY [facility] Last Admin: 06/08/18 12:38 Dose: 500 mg Clopidogrel Bisulfate (Plavix) 75 mg PO DAILY [facility] Last Admin: 06/08/18 10:44 Dose: 75 mg Diltiazem HCl (Cardizem Cd) 180 mg PO DAILY [facility] Last Admin: 06/08/18 10:44 Dose: 180 mg Enoxaparin Sodium (Lovenox) 40 mg SQ DAILY [facility] Furosemide (Lasix) 20 mg PO DAILY [facility] Last Admin: 06/08/18 12:38 Dose: 20 mg Gabapentin (Neurontin) 300 mg PO BID [facility] Last Admin: 06/08/18 21:54 Dose: 300 mg Gabapentin (Neurontin) 200 mg PO BID [facility] Last Admin: 06/08/18 21:54 Dose: 200 mg Guaifenesin (Mucinex) 600 mg PO BID [facility] Last Admin: 06/08/18 21:56 Dose: Not Given Hydrocortisone (Hydrocortisone) 1 gm TOP BID PRN PRN Reason: HEMORRHOIDS Sodium Chloride () 1,000 mls @ 15 mls/hr IV .Q24H PRN PRN Reason: LARGE VOLUME IV CEFTRIAXONE 1GM/50ML BAG (Ceftriaxone 1 Gm-D5w Bag) 1 gm in 50 mls @ 100 mls/ hr IVPB Q24H [facility] Last Infusion: 06/08/18 13:15 Dose: Infused Levothyroxine Sodium (Synthroid) 25 mcg PO DAILYTHY [facility] Last Admin: 06/08/18 10:44 Dose: 25 mcg Pantoprazole Sodium (Protonix) 40 mg PO DAILYAC [facility] Last Admin: 06/08/18 10:44 Dose: 40 mg Patient Own Med: (Tylenol Er 650 Mg) 2 each PO BID [facility] Last Admin: 06/08/18 21:56 Dose: 2 each Patient Own Med: Dulcolax 100 Mg Capsule 1 each PO QHS [facility] AMI Plan - Labs Result Diagrams: 06/09/18 06:22 06/09/18 06:22
[2018-06-09] MEDS: GABAPENTIN 300 MG CAPSULE PO SCH ×2 (10:00→22:58)
[2018-06-09] MEDS: GABAPENTIN 100 MG CAPSULE PO SCH ×2 (10:00→22:58)
[2018-06-09] MEDS: GUAIFENESIN 600 MG TABCR PO SCH ×2 (10:00→22:58)
[2018-06-09] MEDS: ASPIRIN 325 MG TAB ENTERIC-COATED PO SCH (10:00)
[2018-06-09] MEDS: AZITHROMYCIN 500 MG TABLET PO SCH (10:00)
[2018-06-09] MEDS: CLOPIDOGREL 75MG TABLET PO SCH (10:00)
[2018-06-09] MEDS: LEVOTHYROXINE SODIUM 25 MCG TABLET PO SCH (10:00)
[2018-06-09] MEDS: FUROSEMIDE 20 MG TABLET PO SCH (10:00)
[2018-06-09] MEDS: ENOXAPARIN 40 MG/0.4 ML SYR SQ SCH (10:01)
[2018-06-09] MEDS: PANTOPRAZOLE SODIUM 40 MG TABLET PO SCH (10:01)
[2018-06-09] MEDS: DILTIAZEM 180MG CR CAPSULE PO SCH (10:01)
[2018-06-09] MEDS: TYLENOL 650 MG PO SCH ×2 (10:04→22:58)
[2018-06-09] MEDS: CEFTRIAXONE 1GM/50ML BAG 1 GM/50 ML BAG IVPB SCH (12:14)
--- NOTE | 2018-06-09 19:11 | Rehab Evaluation ---
Patient Information - Patient Information Diagnosis: Anemia, congestive heart failure, difficulty in breathing Ordered Treatment: PT Evaluate and Treat Status: Initial Evaluation Surgery: No History: Detail (Pt is an 83 yo female who presented to ED on 06/08/18 with worsening cough and fatigue over the past week. Admitted to MedSurg unit for serial troponin monitoring and further medical workup.) Past Medical/Surgical Hx: PAST MEDICAL/SURGICAL HISTORY Past Surgical History hysterectomy knee surgery rt foot amputation (blood poisoning on toe) PMH - Respiratory Hx Respiratory Disorders No PMH - Cardiovascular Hx Cardiovascular Disorders Yes Hx Cardiac Catheterization Yes: 1 stent placed Hx Heart Attack Yes PMH - Neuro Hx Neurological Disorders No PMH - GI Hx Gastrointestinal Disorders No PMH - Hx Genitourinary Disorders No Patient No PMH - Endocrine Hx Endocrine Disorders Yes Hx Thyroid Disease Yes PMH - Musculoskeletal Hx Musculoskeletal Disorders Yes Hx Arthritis Yes PMH - Psych Hx Psychiatric Problems No PMH - Hematology/Oncology Hx Hematology/Oncology Yes Disorders Hx Cancer Yes: Cervical Premorbid Status: Detail (Pt underwent R BKA in March 2017 due to peripheral vascular disease. 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 Before BKA, she was ambulating independently with prosthetic shoe and single tip cane or a walker. She experienced compression injury by surgical tourniquet during BKA and had a prolonged recovery with regular wound clinic care from March 2017 to November 2017, at which time she got her initial prosthesis. She did not become efficient with gait with her prosthesis and had several falls, most recently in March. She anticipates delivery of new prosthesis next week and is interested in pursuing therapy for gait training. She had L TKA in 1999. She was not requiring oxygen at home prior to this admission. Primary mode of mobility within her home was the wheelchair; she states she can even vacuum the entire house from her wheelchair. She would use a walker to enter the bathrooms , primarily hopping because she couldn't wear her prosthesis effectively. She was independent with all self care, including bathing, dressing, cooking, laundry, housecleaning.) Social History: Detail (Pt lives in a single story home with her son, who she states is not helpful. She has a ramp to enter the home from the front, three steps with no handrail to enter the garage from the home, and two steps out to back porch and out to the patio, all with no handrails. She has walk-in shower with grab bars, shower bench, standard height toilet with safety rails, front wheeled walker, four wheeled walker, cane, and wheelchair. Her grand daughter Priti is present during the evaluation and provides some assistance with the history.) Precautions: [place], Fall - Time With Patient Total Time Spent With Patient (Min): 45 Treatment Procedures: Detail (PT Evaluation) Subjective Information - Subjective Information Per Patient (Pt denies pain. She talks almost continuously and requires cuing to take a breath and to breathe through her nose for the nasal cannula, through which she is receiving 5 L/min at rest. This was increased to 10 L/min during conversation/interview, and again to 12 L/min later. O2 sats improve with pt breathing through her nose and reducing rate/volume of talking.) Objective Data - Pain Pain Present: No - Mental Status Patient Orientation: Oriented x3 - Visual Perception Appears within normal limits for therapeutic activities - ROM Not within normal limits (Grossly functional in B hips and L ankle, L knee extension. She has limited L knee flexion after TKA, to about 70 degrees flexion.) - Strength/Tone Not within normal limits (4+/5 in R hip flexion, extension, abduction, adduction , R knee flexion/extension. 4+/5 in L hip flexion and extension, L ankle dorsiflexion; 4-/5 L hip abduction/adduction; 4+/5 L knee flexion/extension.) - Coordination Appears within normal limits for therapeutic activities - Transfers Needs Assist (CGA for sit/stand transfers w/o prosthesis.) - Balance Balance Sitting: Good Balance Standing: Good (With front wheeled walker w/o prosthesis) - Sensation Intact - Gait Detail (Not assessed due to low HgB and hypoxic state.) Therapy Assessment - Therapy Assessment Detail (Pt appears to have been functioning quite independently prior to admission and is primarily limited at this time by medical status and needing oxygen supplementation. She expresses a desire to pursue physical therapy for gait and balance training once she receives her new prosthesis. She was informed that she could receive home therapy or go to outpatient therapy depending on her medical status and insurance coverage. At this time, her medical needs are primary, and physical therapy will monitor to determine need for further intervention while inpatient.) Patient Education - Patient Education Teaching Topic: Equipment Use, Exercise/Activity, Precautions Response: Verbalize Understanding Teaching Method: Discussion Teaching Recipient: Patient, Family Barriers To Learning: None Goals - Goals Physical Therapy Goals: 1. Pt will verbalize good understanding of next steps in therapy process upon discharge, in order to pursue gait/balance training with prosthesis. Prognosis - Prognosis Good, Moderate Plan - Plan Physical Therapy Plan: We will monitor patient daily M-F to determine progress with medical stability and facilitate any further physical therapy needs, and facilitate discharge needs.
--- NOTE | 2018-06-09 19:57 | Cardiology Consult ---
DATE: 06/08/2018 REASON FOR CONSULTATION: CONGESTIVE HEART FAILURE. HISTORY: Ms. Wren is 83 years old, who presents to [facility] 0n 06/08/2018 with increasing dyspnea at rest She states for the past three to five days she has had progressive dyspnea and unable to lay flat. She denied any fever or chills but had a productive cough. She described the sputum as clear to mildly yellow. She has no recent tobacco use and quit in 2004 after 40 pack years. She has history of coronary artery disease with a drug- eluting stent to the mid right coronary artery [place] [address] Carter. She last had a Stress Cardiolite performed in 2017 prior to right lower extremity amputation by Dr. Chen at [facility]. She has not been seeing a Drosser for years. She denies history of diabetes mellitus, hypertension and hyperlipidemia. She has not required diuretics or have had previous history of heart failure. PAST MEDICAL HISTORY: Includes hypothyroidism. PAST SURGICAL HISTORY: Includes right below-knee amputation for peripheral arterial disease. MEDICATIONS AT HOME INCLUDE: Gabapentin 100 mg t.i.d. Vitamin D supplements ALLERGIES: SHE DENIES ANY. SOCIAL HISTORY: She denies any further tobacco use since 2004; has a 40 pack year history. No significant alcohol use. She lives in [place] and use to work for [employer]. FAMILY HISTORY: Noncontributory. PHYSICAL EXAM: VITAL SIGNS: Pulse is currently 91 beats per minute. Blood pressure 117/70. Pulse ox is 92%. LUNGS: Clear. CARDIAC EXAM: Normal. ABDOMEN: Obese. EXTREMITIES: Right below-knee amputation. Left lower extremity has moderate edema. LABORATORY: Her white count was 12.3. Hemoglobin 8.9. Platelets 256,000. Sodium 144. Potassium 4.3. BUN 23. Creatinine 0.5. Blood sugar 130. Her initial troponin was 0.055. Her proBNP was 2,628. FINAL IMPRESSION: 1. HEART FAILURE, PRESERVED EJECTION FRACTION: Ms. Wren presents with symptoms of acute diastolic congestive heart failure. Her echocardiogram performed on 06/08/2018 demonstrated a normal ejection fraction with grade 1 diastolic dysfunction. She has previous history of coronary artery disease with drug-eluting stent to the mid right coronary artery in 2004. If her troponins remain indeterminate, recommend outpatient [facility] Stress Cardiolite. If her troponins increase, then she should require transfer to [facility] for cardiac catheterization and for further evaluation. Agree at this time with Furosemide 20 mg daily. Blood pressure and heart rates are currently controlled with Diltiazem, which she may continue. She is on Levothyroxine for hypothyroidism. She has been on Clopidogrel for the past year since her right lower extremity amputation and Aspirin 81 mg daily. Agree with Atorvastatin 40 mg every h.s. Thank you for this consultation. JOB NUMBER: [id number] MTDD
[2018-06-09] MEDS: ATORVASTATIN 20 MG TABLET PO SCH (22:58)
[2018-06-09] MEDS: DULCOLAX PO SCH (22:58)
[2018-06-10 06:36] LABS: HEMATOCRIT 33.7 % (35.0-47.0); HEMOGLOBIN 8.6 gm/dl (11.6-16.0); MEAN CELL VOLUME 79.9 fl (81-97); MEAN CORPUSCULAR HGB CONC 25.5 g/dl (32-36); MEAN PLATELET VOLUME 9.4 fl (7.4-10.4); PLATELET COUNT 252 K/uL (130-400); RED BLOOD COUNT 4.22 M/uL (3.80-5.40); RED CELL DISTRIBUTION WIDTH 19.2 % (11.5-14.5); WHITE BLOOD COUNT W/O DIFF 8.8 K/uL (4.2-12.2)
[2018-06-10 06:41] LABS: MEAN CORPUSCULAR HEMOGLOBIN 20.3 pg (27-33)
[2018-06-10 06:44] LABS: BLOOD UREA NITROGEN 19 mg/dL (8-23); CREATININE 0.6 mg/dL (0.5-0.9); EST GLOMERULAR FILTRATION RATE > 60 mL/min; GLUCOSE,RANDOM 151 mg/dL (74-109)
[2018-06-10 06:57] LABS: FERRITIN 42.88 ng/mL (13-150)
[2018-06-10] MEDS: PANTOPRAZOLE SODIUM 40 MG TABLET PO SCH (07:00)
[2018-06-10] MEDS: LEVOTHYROXINE SODIUM 25 MCG TABLET PO SCH (07:00)
[2018-06-10 07:04] LABS: ANISOCYTOSIS 1+; MICROCYTOSIS 1+; PLATELET ESTIMATE NORMAL (NORMAL)
[2018-06-10] MEDS: ENOXAPARIN 40 MG/0.4 ML SYR SQ SCH (09:48)
[2018-06-10] MEDS: GABAPENTIN 300 MG CAPSULE PO SCH ×2 (09:49→21:42)
[2018-06-10] MEDS: GUAIFENESIN 600 MG TABCR PO SCH ×2 (09:49→21:43)
[2018-06-10] MEDS: GABAPENTIN 100 MG CAPSULE PO SCH ×2 (09:49→21:43)
[2018-06-10] MEDS: CLOPIDOGREL 75MG TABLET PO SCH (09:50)
[2018-06-10] MEDS: FUROSEMIDE 20 MG TABLET PO SCH (09:50)
[2018-06-10] MEDS: AZITHROMYCIN 500 MG TABLET PO SCH (09:50)
[2018-06-10] MEDS: ASPIRIN 325 MG TAB ENTERIC-COATED PO SCH (09:50)
[2018-06-10] MEDS: DILTIAZEM 180MG CR CAPSULE PO SCH (09:52)
[2018-06-10] MEDS: TYLENOL 650 MG PO SCH ×2 (09:53→21:44)
[2018-06-10] MEDS: CEFTRIAXONE 1GM/50ML BAG 1 GM/50 ML BAG IVPB SCH (11:21)
--- NOTE | 2018-06-10 11:27 | Rehab Evaluation ---
Patient Information - Patient Information Diagnosis: Anemia, congestive heart failure, difficulty in breathing Ordered Treatment: OT Evaluate and Treat Status: Initial Evaluation Surgery: No History: Detail (Pt is an 83 yo female who presented to ED on 06/08/18 with worsening cough and fatigue over the past week. Admitted to MedSurg unit for serial troponin monitoring and further medical workup.) Past Medical/Surgical Hx: PAST MEDICAL/SURGICAL HISTORY Past Surgical History hysterectomy knee surgery rt foot amputation (blood poisoning on toe) PMH - Respiratory Hx Respiratory Disorders No PMH - Cardiovascular Hx Cardiovascular Disorders Yes Hx Cardiac Catheterization Yes: 1 stent placed Hx Heart Attack Yes PMH - Neuro Hx Neurological Disorders No PMH - GI Hx Gastrointestinal Disorders No PMH - Hx Genitourinary Disorders No Patient No PMH - Endocrine Hx Endocrine Disorders Yes Hx Thyroid Disease Yes PMH - Musculoskeletal Hx Musculoskeletal Disorders Yes Hx Arthritis Yes PMH - Psych Hx Psychiatric Problems No PMH - Hematology/Oncology Hx Hematology/Oncology Yes Disorders Hx Cancer Yes: Cervical Premorbid Status: Detail (Pt underwent R BKA in March 2017 due to peripheral vascular disease. 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 Before BKA, she was ambulating independently with prosthetic shoe and single tip cane or a walker. She experienced compression injury by surgical tourniquet during BKA and had a prolonged recovery with regular wound clinic care from March 2017 to November 2017, at which time she got her initial prosthesis. She did not become efficient with gait with her prosthesis and had several falls, most recently in March. She anticipates delivery of new prosthesis next week and is interested in pursuing therapy for gait training. She had L TKA in 1999. She was not requiring oxygen at home prior to this admission. Primary mode of mobility within her home was the wheelchair; she states she can even vacuum the entire house from her wheelchair. She would use a walker to enter the bathrooms , primarily hopping because she couldn't wear her prosthesis effectively. She was independent with all self care, including bathing, dressing, cooking, laundry, housecleaning.) Social History: Detail (Pt lives in a single story home with her son, who she states is not helpful. Her son lives in the basement. She has a ramp to enter the home from the front, three steps with no handrail to enter the garage from the home, and two steps out to back porch and out to the patio, all with no handrails. She has walk-in shower with grab bars and shower bench, walk in tub with heated seat, standard height toilet with safety rails, front wheeled walker , four wheeled walker, cane, and wheelchair as well as a sock aid, fraud examiner and long shoe horn.) Precautions: [place], Fall, Other (10 liters of oxygen) - Time With Patient Total Time Spent With Patient (Min): 50 Treatment Procedures: Detail (OT eval low complexity) Subjective Information - Subjective Information Per Patient Objective Data - Pain Pain Present: Yes (8/10 in left leg and left shoulder) - Mental Status Patient Orientation: Oriented x3 - Visual Perception Appears within normal limits for therapeutic activities (Pt wears glasses for reading) - ROM Within normal limits (Rigoberto UE AROM WNL) - Strength/Tone Within normal limits (Rigoberto UE strength 4+/5) - Coordination Appears within normal limits for therapeutic activities - Transfers Needs Assist (CG assist for transfer from wheelchair to toilet.) - Balance Balance Sitting: Good Balance Standing: Fair (with walker) - Sensation Intact - Gait Detail (Pt ambulated 10 feet into bathroom with 2 wheeled walker and CG assist using 10 liters of oxygen. Pt became fatigued with ambulation.) - ADL's/IADL's Detail (Pt able to complete washing face and brushing hair at sink Indly although required cues for pursed lip breathing. Pt completed toileting including doffing and donning briefs and toileting hygiene with CG assist and verbal cues for breathing technique as pt became fatigued. Other self cares completed with nursing assist per patient report.) Therapy Assessment - Therapy Assessment Detail (Pt requires contact guard assist with mobility and self cares due to decreased endurance and use of oxygen as well as pt requiring verbal cues for modified breathing techniques.) Problem List - Problem List Occupational Therapy Problem List: Detail (1. Decreased Ind with functional mobility/self cares. 2. Decreased endurance needed for Ind self cares, IADLs and functional mobility.) Goals - Goals Physical Therapy Goals: 1. Pt will verbalize good understanding of next steps in therapy process upon discharge, in order to pursue gait/balance training with prosthesis. Occupational Therapy Goals: 1. Pt will be safe and Ind with showering in sitting. 2. Pt will be Ind with functional mobility needed for safe and Ind ADLs/IADLs. 3. Pt will improve overall endurance and use of modified breathing techniques to maximize Ind and safety. Prognosis - Prognosis Good Plan - Plan Physical Therapy Plan: We will monitor patient daily M-F to determine progress with medical stability and facilitate any further physical therapy needs, and facilitate discharge needs. Occupational Therapy Plan: OT 2-4 days per week. Recommend continued Rehab to address decreased endurance, functional mobility, Ind with ADLs/IADLs and pt education for proper breathing techniques and use of oxygen if required at home.
--- NOTE | 2018-06-10 11:35 | Physical Therapy Tx Note ---
Physical Therapy Tx Note - Treatment Note Tolerated: Fair Total Time Spent With Patient: 15 Physical Therapy Tx Note: Detail (The patient was up in chair when PT arrived. The patient completed sit to and from stand from wheelchair independently ( supervision for safety). The patient ambulated with front wheeled walker a distance of 7 feet x 1 and 10 feet x 1 with 10 L of O2 and CG for safety only. The patient was fatigued after ambulation and required maximal verbal cues to purse lip breath. The patient at times removed her O2. The patient's sat. level remained in the 90's with 10 L of O2. The patient would benefit subacute Rehab to improve overall functional level emphasis on proper use of O 2 and proper breathing techniques with functional acitivities including talking ( patient previously did not have O2 at home.) Independent ambulation with walker is also required at home for short distances since the patient's bathroom is not acessible to wheelchair.) Physical Therapy Goals: 1. Pt will verbalize good understanding of next steps in therapy process upon discharge, in order to pursue gait/balance training with prosthesis. Physical Therapy Plan: PT daily M-F for gait training, instruction in breathing techniques and transfer training until discharge from [facility].
--- NOTE | 2018-06-10 16:03 | Physician Progress Note ---
Subjective - Date Date of Physician Progress Note: 06/10/18 - Subjective Subjective Comment: The patient was alert and oriented. In no acute distress sitting in wheelchair at bedside. Objective - Vital Signs Vital Signs: Vital Signs - Last 24 Hrs Temp Pulse Pulse Resp BP Pulse Ox 06/10/18 07:46 97 F L 57 L 22 128/51 92 L 06/10/18 05:05 90 L 06/10/18 05:00 97.9 F 94 H 18 138/63 95 06/09/18 21:10 97 06/09/18 20:40 100 H 99 06/09/18 20:00 98.1 F 105 H 18 121/44 97 06/09/18 16:33 96 H 24 93 L - General General Appearance: Alert, Oriented x3, Cooperative, Moderate distress (Patient' s RA oxygen saturation 74% on arrival) Limitations: No limitations - Head Head exam: Atraumatic, Normocephalic, Normal inspection Head exam detail: negative: Abrasion, Contusion, Noland's sign, General tenderness, Hematoma, Laceration - Eye Eye exam: Normal appearance. negative: Conjunctival injection, Periorbital swelling, Periorbital tenderness, Scleral icterus - ENT Ear exam: negative: Auricular hematoma, Auricular trauma Nasal Exam: negative: Active bleeding, Discharge, Dried blood, Foreign body Mouth exam: negative: Drooling, Laceration, Muffled voice, Tongue elevation - Neck Neck exam: Normal inspection. negative: Meningismus, Tenderness - Respiratory Respiratory exam: Decreased breath sounds. negative: Rales, Respiratory distress, Rhonchi, Stridor - Cardiovascular Cardiovascular Exam: Regular rate, Normal rhythm, Normal heart sounds Peripheral Pulses: 3+: Radial (R), Radial (L), Dorsalis Pedis (R), Dorsalis Pedis (L) - GI/Abdominal GI/Abdominal exam: Soft. negative: Rebound, Rigid, Tenderness - Rectal Rectal exam: Deferred - exam: Deferred - Extremities Extremities exam: Other (BKA right). negative: Pedal edema, Tenderness - Back Back exam: Denies: CVA tenderness (R), CVA tenderness (L) - Neurological Neurological exam: Alert, Oriented X3. negative: Motor sensory deficit - Psychiatric Psychiatric exam: Normal affect, Normal mood - Skin Skin exam: Normal color. negative: Abrasion Type of lesion: negative: abrasion Assessment and Plan - Assessment and Plan (1) Community acquired pneumonia Current Visit: Yes Status: Acute Base Code: J18.9 - PNEUMONIA, UNSPECIFIED ORGANISM Comment: 06/10/18: - No hospitalizations within [facility] 90 days. - Symptoms of productive cough and respiratory distress. - CXR suggestive of opacity in the right middle lobe. - Titrate oxygen to maintain sats > 92%. Patient desaturated to low 70 's overnight and was placed on NIPPV with Fio2 35%. Sats improved to 91%. Currently on 5L oxygen and maintaining sats > 95%. NIPPV PRN if sats not at goal. - Start Ceftiraxone 1gm IV Q24H and Zithromax 500mg PO Q24H - Repeat labs in the morning. - Ordered D-dimer 1.3, CT thorax ordered due to fluctuating sats. (2) Pulmonary vascular congestion Current Visit: Yes Status: Acute Base Code: R09.89 - OTH SYMPTOMS AND SIGNS INVOLVING THE CIRC AND RESP SYSTEMS Comment: 06/10/18: - No hx of CHF, ECG: NSR, no acute findings. - BNP 2628, troponin 0.055 -->0.06--> 0.07 - CXR suggestive of vascular congestion and edema. - Resuming Cardizem, ASA/Plavix, Atorvastatin. Lasix 20mg daily - 2D echo with preserved EF and diastolic dysfunction, (3) Elevated troponin Current Visit: Yes Status: Acute Base Code: R74.8 - ABNORMAL LEVELS OF OTHER SERUM ENZYMES Comment: 06/09/18: - 0.055, serial troponins 0.06-->0.07. CXR: notes vascular congestion. 2D echo : preserved EF 55-60%, Grade I diastolic dysfunction. - ECG: NSR, no acute changes. No changes on monitor - Hx of CAD s/p stent to mid RCA 2008 - Resuming home medications; CCB, ASA, Plavix, Statin - Cardiology reviewed and recommend continuing treatment as ordered. No acute intervention needed. (4) Anemia Current Visit: Yes Status: Acute Qualifiers: Anemia type: unspecified type Qualified Code(s): D64.9 - Anemia, unspecified Base Code: D64.9 - ANEMIA, UNSPECIFIED Comment: 06/09/18: - Hgb 8.9, - Fecal occult blood pending. Serum Fe, Ferritin, TIBC - Continue with dual antiplatelet therapy. (5) CAD (coronary artery disease) Current Visit: Yes Status: Acute Base Code: I25.10 - ATHSCL HEART DISEASE OF [place] CORONARY ARTERY W/O ANG PCTRS Comment: 06/10/18: - S/p stent to the mid RCA 2008. - On Cardizem 180mg daily, Atorvastatin 40mg QHS, DAPT w/ ASA/Plavix - Troponinin 0.05, 0.06,0.07 2D echoL diastolic HF, tight BP control (6) Hypothyroid Current Visit: Yes Status: Acute Base Code: E03.9 - HYPOTHYROIDISM, UNSPECIFIED Comment: 06/10/18: - resume home dose of Levothyroxine. (7) PVD (peripheral vascular disease) Current Visit: Yes Status: Acute Base Code: I73.9 - PERIPHERAL VASCULAR DISEASE, UNSPECIFIED Comment: 06/10/18: - on ASA,Plavix, Statin (8) Status post bilateral below knee amputation Current Visit: Yes Status: Acute Base Code: Z89.512 - ACQUIRED ABSENCE OF LEFT LEG BELOW KNEE; Z89.511 - ACQUIRED ABSENCE OF RIGHT LEG BELOW KNEE Comment: 06/10/19: - As a result of PVD - Pt uses prosthetic device to ambulate. 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 (10) DVT prophylaxis Current Visit: Yes Status: Acute Base Code: [id number] - Comment: 06/10/18: - Lovenox 40 mg daily. (11) Full code status Current Visit: Yes Status: Acute Base Code: Z78.9 - OTHER SPECIFIED HEALTH STATUS Comment: 06/10/18: - Full code status. Results - Labs Result Diagrams: 06/10/18 06:27 06/10/18 06:27 Labs Last 24 Hours: Laboratory Results - last 24 hr 06/10/18 06/10/18 06/10/18 06:00 06:27 06:27 WBC 8.8 RBC 4.22 Hgb 8.6 L Hct 33.7 L MCV 79.9 L MCH 20.3 L MCHC 25.5 L RDW 19.2 H Plt Count 252 MPV 9.4 Neutrophils % 76.0 Band Neutrophils % 3.0 Eosinophils % Not Reportable Basophils % Not Reportable Lymphocytes 10.0 L Monocytes 8.0 Metamyelocytes 2.0 Myelocytes 1.0 Platelet Estimate Normal Anisocytosis 1+ Microcytosis 1+ D-Dimer Sodium 146 H Potassium 4.1 Chloride 101 Carbon Dioxide 35.0 H Anion Gap 10.0 BUN 19 Creatinine 0.6 Estimated GFR > 60 Random Glucose 151 H Calcium 9.1 Iron 18 L TIBC 304 % Saturation 5 L Ferritin 42.88 06/10/18 12:45 WBC RBC Hgb Hct MCV MCH MCHC RDW Plt Count MPV Neutrophils % Band Neutrophils % Eosinophils % Basophils % Lymphocytes Monocytes Metamyelocytes Myelocytes Platelet Estimate Anisocytosis Microcytosis D-Dimer 1.34 H Sodium Potassium Chloride Carbon Dioxide Anion Gap BUN Creatinine Estimated GFR Random Glucose Calcium Iron TIBC % Saturation Ferritin DVT/PE Assessment - Risk for VTE Risk for VTE: No Risk Level: High Risk Assessment Date: 06/08/18 Risk Assessment Time: 11:02 VTE Orders Placed or Will Be Placed: Yes - Active Medicaitons Current Medications: Current Medications Hydrocodone Bitart/Acetaminophen ([place] 5mg/325mg) 1 each PO Q8H PRN PRN Reason: PAIN - MOD TO SEVERE (5-10) Albuterol Sulfate (Albuterol Sulfate) 2.5 mg INH RESP.Q4H.WA PRN PRN Reason: DIFFICULTY IN BREATHING Last Admin: 06/09/18 05:58 Dose: 2.5 mg Aspirin (Ecotrin (Ec)) 325 mg PO DAILY [facility] Last Admin: 06/10/18 09:50 Dose: 325 mg Atorvastatin Calcium (Lipitor) 40 mg PO QHS [facility] Last Admin: 06/09/18 22:58 Dose: 40 mg Azithromycin (Zithromax) 500 mg PO DAILY [facility] Last Admin: 06/10/18 09:50 Dose: 500 mg Clopidogrel Bisulfate (Plavix) 75 mg PO DAILY [facility] Last Admin: 06/10/18 09:50 Dose: 75 mg Diltiazem HCl (Cardizem Cd) 180 mg PO DAILY [facility] Last Admin: 06/10/18 09:52 Dose: 180 mg Enoxaparin Sodium (Lovenox) 40 mg SQ DAILY [facility] Last Admin: 06/10/18 09:48 Dose: 40 mg Furosemide (Lasix) 20 mg PO DAILY [facility] Last Admin: 06/10/18 09:50 Dose: 20 mg Gabapentin (Neurontin) 300 mg PO BID [facility] Last Admin: 06/10/18 09:49 Dose: 300 mg Gabapentin (Neurontin) 200 mg PO BID [facility] Last Admin: 06/10/18 09:49 Dose: 200 mg Guaifenesin (Mucinex) 600 mg PO BID [facility] Last Admin: 06/10/18 09:49 Dose: 600 mg Hydrocortisone (Hydrocortisone) 1 gm TOP BID PRN PRN Reason: HEMORRHOIDS Sodium Chloride () 1,000 mls @ 15 mls/hr IV .Q24H PRN PRN Reason: LARGE VOLUME IV CEFTRIAXONE 1GM/50ML BAG (Ceftriaxone 1 Gm-D5w Bag) 1 gm in 50 mls @ 100 mls/ hr IVPB Q24H [facility] Last Infusion: 06/10/18 12:27 Dose: Infused Levothyroxine Sodium (Synthroid) 25 mcg PO DAILYTHY [facility] Last Admin: 06/10/18 07:00 Dose: 25 mcg Pantoprazole Sodium (Protonix) 40 mg PO DAILYAC [facility] Last Admin: 06/10/18 07:00 Dose: 40 mg Patient Own Med: (Tylenol Er 650 Mg) 2 each PO BID [facility] Last Admin: 06/10/18 09:53 Dose: 2 each Patient Own Med: Dulcolax 100 Mg Capsule 1 each PO QHS [facility] Last Admin: 06/09/18 22:58 Dose: 1 each Patient Own Med: Digestive Plus Supplement 3 each PO QHS [facility] AMI Plan - Labs Result Diagrams: 06/10/18 06:27 06/10/18 06:27
[2018-06-10] MEDS: ATORVASTATIN 20 MG TABLET PO SCH (21:42)
[2018-06-10] MEDS: DULCOLAX PO SCH (21:52)
[2018-06-10] MEDS ORDERED: [UNRECOGNIZED DRUG - OTHER] PO SCH (22:00)
[2018-06-11] MEDS: LEVOTHYROXINE SODIUM 25 MCG TABLET PO SCH (06:14)
[2018-06-11] MEDS: PANTOPRAZOLE SODIUM 40 MG TABLET PO SCH (06:14)
--- NOTE | 2018-06-11 09:58 | Discharge Summary ---
Providers Discharge Summary Date: 06/11/18 Date of admission: 06/08/18 08:21 Attending physician: TARA HOLM Primary care physician: FLORIN CHEN M.D. Consults: Consult Orders 06/08/18 08:54 Consult - Cardiology NOW Consulting Provider: CORY PINO Physician Instructions: Reason For Exam: Elevated troponin, CHF, Anemia Does pt have current product engineering manager?: Diomedes 06/09/18 13:21 Consult - Case Management Now Comment: Priti Braun [phone] Reason For Exam: Granddaughter requested an evaluation Physical Exam - Vital Signs Vital Signs: Vital Signs - Last 24 Hrs Temp Pulse Resp BP Pulse Ox 06/11/18 08:00 97.9 F 86 18 131/51 94 L 06/11/18 05:59 92 L 06/11/18 05:35 93 L 06/10/18 23:00 98.0 F 84 17 116/52 98 06/10/18 22:15 93 L 06/10/18 20:39 84 18 06/10/18 16:00 97.9 F 84 18 113/43 95 - General General Appearance: Alert, Oriented x3, Cooperative, Moderate distress (Patient' s RA oxygen saturation 74% on arrival) Limitations: No limitations - Head Head exam: Atraumatic, Normocephalic, Normal inspection Head exam detail: negative: Abrasion, Contusion, Noland's sign, General tenderness, Hematoma, Laceration - Eye Eye exam: Normal appearance. negative: Conjunctival injection, Periorbital swelling, Periorbital tenderness, Scleral icterus - ENT Ear exam: negative: Auricular hematoma, Auricular trauma Nasal Exam: negative: Active bleeding, Discharge, Dried blood, Foreign body Mouth exam: negative: Drooling, Laceration, Muffled voice, Tongue elevation - Neck Neck exam: Normal inspection. negative: Meningismus, Tenderness - Respiratory Respiratory exam: Decreased breath sounds. negative: Rales, Respiratory distress, Rhonchi, Stridor - Cardiovascular Cardiovascular Exam: Regular rate, Normal rhythm, Normal heart sounds Peripheral Pulses: 3+: Radial (R), Radial (L), Dorsalis Pedis (R), Dorsalis Pedis (L) - GI/Abdominal GI/Abdominal exam: Soft. negative: Rebound, Rigid, Tenderness - Rectal Rectal exam: Deferred - exam: Deferred - Extremities Extremities exam: Other (BKA right). negative: Pedal edema, Tenderness - Back Back exam: Denies: CVA tenderness (R), CVA tenderness (L) - Neurological Neurological exam: Alert, Oriented X3. negative: Motor sensory deficit - Psychiatric Psychiatric exam: Normal affect, Normal mood - Skin Skin exam: Normal color. negative: Abrasion Type of lesion: negative: abrasion Hospitalization - Hospitalization Admission Diagnosis: Moderate Anemia. Elevated troponin. Congestive wilkerson failure - Problem List/Discharge Diagnosis (1) Community acquired pneumonia Current Visit: Yes Status: Acute Base Code: J18.9 - PNEUMONIA, UNSPECIFIED ORGANISM Comment: 06/11/18: - No hospitalizations within the past 90 days. - Symptoms of productive cough and respiratory distress. - CXR suggestive of opacity in the right middle lobe. - Titrate oxygen to maintain sats > 92%. Patient desaturated to low 70 's overnight and was placed on NIPPV with Fio2 35%. Sats improved to 91%. Currently on 5L and oxygen saturations between 89-92%. NIPPV discontinued. - Continue Ceftiraxone 1gm IV Q24H and Zithromax 500mg PO Q24H - D-dimer 1.3, CT thorax negative for PE but shows left lower lobe focal consolidation. (2) Pulmonary vascular congestion Current Visit: Yes Status: Acute Base Code: R09.89 - OTH SYMPTOMS AND SIGNS INVOLVING THE CIRC AND RESP SYSTEMS Comment: 06/11/18: resolved - No hx of CHF, ECG: NSR, no acute findings. - BNP 2628, troponin 0.055 -->0.06--> 0.07 - CXR suggestive of vascular congestion and edema. - Resuming Cardizem, ASA/Plavix, Atorvastatin. Lasix 20mg daily - 2D echo with preserved EF and diastolic dysfunction, (3) Elevated troponin Current Visit: Yes Status: Acute Base Code: R74.8 - ABNORMAL LEVELS OF OTHER SERUM ENZYMES Comment: 06/10/18: - 0.055, serial troponins 0.06-->0.07. CXR: notes vascular congestion. 2D echo : preserved EF 55-60%, Grade I diastolic dysfunction. - ECG: NSR, no acute changes. No changes on monitor - Hx of CAD s/p stent to mid RCA 2008 - Resuming home medications; CCB, ASA, Plavix, Statin - Cardiology reviewed and recommend continuing treatment as ordered. No acute intervention needed. (4) Anemia Current Visit: Yes Status: Acute Discharge Diagnosis: Anemia type: unspecified type Qualified Code(s): D64.9 - Anemia, unspecified Base Code: D64.9 - ANEMIA, UNSPECIFIED Comment: 06/09/18: - Hgb 8.9, - Fecal occult blood pending. Serum Fe, Ferritin, TIBC - Continue with dual antiplatelet therapy. (5) CAD (coronary artery disease) Current Visit: Yes Status: Acute Base Code: I25.10 - ATHSCL HEART DISEASE OF [place] CORONARY ARTERY W/O ANG PCTRS Comment: 06/10/18: - S/p stent to the mid RCA 2008. - On Cardizem 180mg daily, Atorvastatin 40mg QHS, DAPT w/ ASA/Plavix - Troponinin 0.05, 0.06,0.07 2D echoL diastolic HF, tight BP control (6) Hypothyroid Current Visit: Yes Status: Acute Base Code: E03.9 - HYPOTHYROIDISM, UNSPECIFIED Comment: 06/10/18: - resume home dose of Levothyroxine. (7) PVD (peripheral vascular disease) Current Visit: Yes Status: Acute Base Code: I73.9 - PERIPHERAL VASCULAR DISEASE, UNSPECIFIED Comment: 06/10/18: - on ASA,Plavix, Statin (8) Status post bilateral below knee amputation Current Visit: Yes Status: Acute Base Code: Z89.512 - ACQUIRED ABSENCE OF LEFT LEG BELOW KNEE; Z89.511 - ACQUIRED ABSENCE OF RIGHT LEG BELOW KNEE Comment: 06/10/19: - As a result of PVD - Pt uses prosthetic device to ambulate. 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 (10) DVT prophylaxis Current Visit: Yes Status: Acute Base Code: CYF7561 - Comment: 06/10/18: - Lovenox 40 mg daily. (11) Full code status Current Visit: Yes Status: Acute Base Code: Z78.9 - OTHER SPECIFIED HEALTH STATUS Comment: 06/10/18: - Full code status. - Hospitalization Course Hospital Course: Mrs Holger is a 83 y/o female who came in due to worsening cough and shortness of breath beginning last . The patient says her symptoms initially began with becoming short of breath while lying flat. She says that she couldn' t lay flat and had to prop herself up on pillows. She then started to have a cough productive of yellow/white sputum which eventually got worse over the past three days. She also noted that she had a loss of appetite but denies fevers, chills or chest pain. The patient says that she has had heart stent placed but has no history of heart failure. She also notes a 40 pack year smoking history quitting in 2004 but has never been diagnosed with COPD. On arrival to the ED the patient had oxygen saturation at 74 % and required nasal cannula oxygen of 5 liters to sustained saturations > 90%. Chest xray was suggestive of interstitial and vascular markings and the right mid lung shows an opacified area. Her labs show mild elevation of WBCs 12.3, Hgb 0.055, BNP 2, 628, and a normal EKG. The patient is admitted for serial troponins, and cardiac workup. 06/08-06/11: The patient's initial workup revealed right middle lobe consolidation indicating pneumonia and she was started on Zithromax and Rocephin IV. Her oxygen requirement remained 6 liters throughout 06/09 but upon going to bed that evening she had a significant drop in saturations to 79%. She was placed on NIPPV overnight which improved her saturations maintaining above 95%. She was then transition back nasal cannula oxygen but still required high oxygenation levels to achieve saturations goals. Cardiology did review the patient on day #2 of admission and after having a 2D echo. The echo revealed preserved ejection fraction with grade I diastolic dysfunction. The patient has been on Lasix for diuresis and blood pressure was well controlled during admission. There was no acute need for cardiology intervention. It was observed that the patient maintained good oxygenation when sitting up in her wheelchair but when laying flat she was not able to have good respiration. She has no diagnosis of FLORI but she likely has this considering her patterns of oxygen saturations awake compared to when she is sleeping. Her D -dimer was also elevated at 1.[address] chest was ordered which was negative for PE. The patient was able to be titrated down from 10 liters of oxygen to 6 liters and eventually 5 liters and is maintaining saturations just above 90%. She will require continued oxygenation until resolution of pneumonia and antibiotics for at least another 3 days. She would likely benefit from PT/OT daily and repeat chest xray to monitor resolution of infection. PCP: Dr. Chen Procedures: Imaging and X-Rays 06/08/18 06:27 CHEST 2 VIEWS [RAD] Stat 06/10/18 13:45 CHEST CTA w contrast [CTA] Stat Cardiology Procedures 06/08/18 06:27 EKG NOW 06/08/18 08:54 Wellness Manager .Continuous 06/08/18 09:15 EKG NOW 06/08/18 10:14 Echo W/CF & Cardiac Doppler NOW Abnormal Labs: Abnormal Lab Results 06/08/18 06/08/18 06/08/18 Range/Units 06:35 06:35 12:00 WBC 12.3 H (4.2-12.2) K/uL Hgb 8.9 L (11.6-16.0) gm/dl Hct 33.5 L (35.0-47.0) % MCV 76.8 L (81-97) fl MCH 20.4 L (27-33) pg MCHC 26.6 L (32-36) g/dl RDW 19.4 H (11.5-14.5) % Lymphocytes 9.0 L (16-45) % Monocytes 11.0 H (0-9) % D-Dimer (0-0.59) mg/L FEU pCO2 (35-48) mmHg HCO3 (18-23) mmol/L ABG pH (7.35-7.45) ABG O2 Saturation (95-98) % ABG Base Excess (-2 - 3) mmol/L Carboxyhemoglobin (0-1.5) % Total Hemoglobin (11.6-16) g/dl Sodium (136-145) mmol/L Carbon Dioxide 32.0 H (22-29) mmol/L Random Glucose 130 H (74-109) mg/dL Calcium (8.8-10.2) mg/dL Iron (37-145) ug/dL % Saturation (20-50) % Alkaline Phosphatase 158 H (35-104) U/L Troponin T 0.055 H 0.065 H (0-0.010) ng/mL NT-Pro-B Natriuret Pep 2628.00 H (<450) pg/mL 06/08/18 06/08/18 06/09/18 Range/Units 19:40 20:25 00:18 WBC (4.2-12.2) K/uL Hgb 8.2 L (11.6-16.0) gm/dl Hct 31.4 L (35.0-47.0) % MCV (81-97) fl MCH (27-33) pg MCHC (32-36) g/dl RDW (11.5-14.5) % Lymphocytes (16-45) % Monocytes (0-9) % D-Dimer (0-0.59) mg/L FEU pCO2 69.3 H (35-48) mmHg HCO3 34.8 H (18-23) mmol/L ABG pH 7.32 L (7.35-7.45) ABG O2 Saturation 98.2 H (95-98) % ABG Base Excess 8.1 H (-2 - 3) mmol/L Carboxyhemoglobin 2.5 H (0-1.5) % Total Hemoglobin 7.5 L (11.6-16) g/dl Sodium (136-145) mmol/L Carbon Dioxide (22-29) mmol/L Random Glucose (74-109) mg/dL Calcium (8.8-10.2) mg/dL Iron (37-145) ug/dL % Saturation (20-50) % Alkaline Phosphatase (35-104) U/L Troponin T 0.070 H (0-0.010) ng/mL NT-Pro-B Natriuret Pep (<450) pg/mL 06/09/18 06/09/18 06/10/18 Range/Units 06:22 06:22 06:00 WBC (4.2-12.2) K/uL Hgb 8.1 L (11.6-16.0) gm/dl Hct 31.4 L (35.0-47.0) % MCV 78.5 L (81-97) fl MCH 20.2 L (27-33) pg MCHC 25.8 L (32-36) g/dl RDW 19.3 H (11.5-14.5) % Lymphocytes 10.0 L (16-45) % Monocytes 14.0 H (0-9) % D-Dimer (0-0.59) mg/L FEU pCO2 (35-48) mmHg HCO3 (18-23) mmol/L ABG pH (7.35-7.45) ABG O2 Saturation (95-98) % ABG Base Excess (-2 - 3) mmol/L Carboxyhemoglobin (0-1.5) % Total Hemoglobin (11.6-16) g/dl Sodium (136-145) mmol/L Carbon Dioxide 34.0 H (22-29) mmol/L Random Glucose (74-109) mg/dL Calcium 8.3 L (8.8-10.2) mg/dL Iron 18 L (37-145) ug/dL % Saturation 5 L (20-50) % Alkaline Phosphatase (35-104) U/L Troponin T (0-0.010) ng/mL NT-Pro-B Natriuret Pep (<450) pg/mL 06/10/18 06/10/18 06/10/18 Range/Units 06:27 06:27 12:45 WBC (4.2-12.2) K/uL Hgb 8.6 L (11.6-16.0) gm/dl Hct 33.7 L (35.0-47.0) % MCV 79.9 L (81-97) fl MCH 20.3 L (27-33) pg MCHC 25.5 L (32-36) g/dl RDW 19.2 H (11.5-14.5) % Lymphocytes 10.0 L (16-45) % Monocytes (0-9) % D-Dimer 1.34 H (0-0.59) mg/L FEU pCO2 (35-48) mmHg HCO3 (18-23) mmol/L ABG pH (7.35-7.45) ABG O2 Saturation (95-98) % ABG Base Excess (-2 - 3) mmol/L Carboxyhemoglobin (0-1.5) % Total Hemoglobin (11.6-16) g/dl Sodium 146 H (136-145) mmol/L Carbon Dioxide 35.0 H (22-29) mmol/L Random Glucose 151 H (74-109) mg/dL Calcium (8.8-10.2) mg/dL Iron (37-145) ug/dL % Saturation (20-50) % Alkaline Phosphatase (35-104) U/L Troponin T (0-0.010) ng/mL NT-Pro-B Natriuret Pep (<450) pg/mL Condition at Discharge: (2) Stable Discharge Medications - Discharge Medications Prescriptions: Albuterol Sulfate 0.083% [Neb] [Albuterol Sulfate] 2.5 mg INH RESP.Q4H.WA PRN # 30 nebulization solution PRN Reason: Difficulty In Breathing Azithromycin [Zithromax] 500 mg PO DAILY #4 tab Cefdinir [Omnicef] 300 mg PO BID 4 Days #8 cap Furosemide [Lasix] 20 mg PO DAILY #30 tablet Guaifenesin [Mucinex] 600 mg PO BID #20 tabcr Home Medications: Ambulatory Orders Aspirin [Aspirin EC] 325 mg PO DAILY 06/11/14 [Last Taken 06/10/14] Clopidogrel Bisulfate [Clopidogrel] 75 mg PO DAILY 06/11/14 [Last Taken 06/10/14 ] Docusate Sodium [Dulcolax Stool Softener] 100 mg PO ASDIR PRN 06/11/14 [Last Taken Unknown] Levothyroxine Sodium [Synthroid] 25 mcg PO DAILY 06/11/14 [Last Taken 06/10/14] Atorvastatin Calcium 40 mg PO QHS 07/18/17 [Last Taken Unknown] Diltiazem HCl [Diltiazem 24Hr ER] 180 mg PO DAILY 07/18/17 [Last Taken Unknown] Gabapentin [Neurontin] 400 mg PO BID 07/18/17 [Last Taken Unknown] Hydrocodone/Acetaminophen [Sanger 5mg/325mg] 1 tab PO Q8H PRN 07/18/17 [Last Taken Unknown] Pantoprazole Sodium 40 mg PO DAILY 07/18/17 [Last Taken Unknown] Ergocalciferol (Vitamin D2) [Vitamin D2] 50,000 unit PO MONTHLY 06/08/18 [Last Taken Unknown] Gabapentin [Neurontin] 100 mg PO BID 06/08/18 [Last Taken Unknown] Herb-Lax 4 tab PO DAILY 06/08/18 [Last Taken Unknown] Prebiotic 500 1 tab PO DAILY 06/08/18 [Last Taken Unknown] Visionary Vitamin 2 tab PO DAILY 06/08/18 [Last Taken Unknown] Albuterol Sulfate 0.083% [Neb] [Albuterol Sulfate] 2.5 mg INH RESP.Q4H.WA PRN # 30 nebulization solution 06/11/18 [Last Taken Unknown] Aspirin Enteric-Coated [Ecotrin (EC)] 325 mg PO DAILY tabec 06/11/18 [Last Taken Unknown] Azithromycin [Zithromax] 500 mg PO DAILY #4 tab 06/11/18 [Last Taken Unknown] Cefdinir [Omnicef] 300 mg PO BID 4 Days #8 cap 06/11/18 [Last Taken Unknown] Furosemide [Lasix] 20 mg PO DAILY #30 tablet 06/11/18 [Last Taken Unknown] Guaifenesin [Mucinex] 600 mg PO BID #20 tabcr 06/11/18 [Last Taken Unknown] Discharge Plan - Discharge Instructions Diet at Discharge: Low Fat, Low Cholesterol, Low Salt Diet Additional Instructions: New medications from hospital: Zithromax 500mg, once daily for 4 more days. Cefdinir 300mg, one tab twice daily for 4 more days. Mucinex 600mg twice daily, as needed. Lasix 20mg daily. All other medications are to be resumed as per your PCP. If you need refills for any of them please call your doctor's office on Wednesday. You will also need to follow up with Cardiology once you have completed rehab and returned home. Please have your PCP refer you to a Senior Process Engineer for management of Heart failure. Quality Measures - Quality Measures Quality Measures: Advance Directives, Coronary Artery Disease: Antiplatelet Therapy, Documentation of Current Medications in Medical Record, Elder Maltreatment Screen and Follow-Up Plan, Heart Failure, Screening for High Blood Pressure and F/U Documented - Current Medications Quality Measure: Measure #130: Documentation of Current Medications Documentation of Current Medications: <Current Medications Documented/Reviewed> [M8902] - Blood Pressure Screening Quality Measure: Screening for High Blood Pressure and Follow-Up Documented Does Patient Have Any of the Following: No Blood Pressure Classification: Normal BP Reading Systolic Measurement: 117 Diastolic Measurement: 70 Screening for High Blood Pressure: < Normal BP, F/U Not Required > [I5368] - Coronary Artery Disease Quality Measure: Measure #6: Coronary Artery Disease (CAD) Antiplatelet Therapy: <ASA or clopidogrel prescribed> [3769M] - Heart Failure (FABIOLA/ARB Therapy) Quality Measure: Heart Failure Left Ventricular Systolic Function: Unknown FABIOLA Inhibitor or ARB Therapy for LVSD: Not Eligible - Heart Failure (Beta-tylor Therapy) Quality Measure: Heart Failure Left Ventricular Systolic Function: Unknown Beta-Tylor Therapy for LVEF < 40%: Not Eligible - Advance Directives Quality Measure: Measure #47: Care Plan Advance Directives Established: Yes Advance Directives Information Provided To Patient: Declined Advance Directives on File: No Living Will: Yes Power of Staffing Branch Manager: Yes Power of Staffing Branch Manager Name: Asaf Braun Advance Care Planning: <Care Plan/Decision Maker Not Decided; Discussed & Documented> [1124F] - Elder Abuse Suspicion Index Screening: Elder Abuse Suspicion Index Screening Rely on people for bathing, dressing, shopping, banking, etc: No Prevented from getting food, clothes, medication, etc: No Made to feel shamed or threatened by someone: No Forced to sign papers or use money against will: No Feel afraid, touched in ways not wanted or hurt physically: No Poor eye contact, withdrawn, malnourished, cuts or bruises: No Screening Result: Negative result EASI Reference Information: Denae CASTELAN, Jackelin C, Stephanie D, Bernice Davis.Development and validation of a tool to assist physicians identification of elder abuse: The Elder Abuse Suspicion Index (EASI ). Journal of Elder Abuse and Neglect, 2008; 20 (3): 276-300. - Elder Maltreatment Screen Quality Measures: Elder Maltreatment Screen and Follow-Up Plan Elder Maltreatment Screen: <Negative, No Follow-Up Plan Required> [G2764]
[2018-06-11] MEDS: ENOXAPARIN 40 MG/0.4 ML SYR SQ SCH (10:01)
[2018-06-11] MEDS: FUROSEMIDE 20 MG TABLET PO SCH (10:02)
[2018-06-11] MEDS: GUAIFENESIN 600 MG TABCR PO SCH (10:02)
[2018-06-11] MEDS: AZITHROMYCIN 500 MG TABLET PO SCH (10:02)
[2018-06-11] MEDS: CLOPIDOGREL 75MG TABLET PO SCH (10:02)
[2018-06-11] MEDS: ASPIRIN 325 MG TAB ENTERIC-COATED PO SCH (10:03)
[2018-06-11] MEDS: DILTIAZEM 180MG CR CAPSULE PO SCH (10:03)
[2018-06-11] MEDS: GABAPENTIN 100 MG CAPSULE PO SCH (10:03)
[2018-06-11] MEDS: GABAPENTIN 300 MG CAPSULE PO SCH (10:10)
[2018-06-11] MEDS: TYLENOL 650 MG PO SCH (10:36)
[2018-06-11] MEDS: CEFTRIAXONE 1GM/50ML BAG 1 GM/50 ML BAG IVPB SCH (11:28)
--- NOTE | 2018-06-11 13:39 | CT ANGIOGRAM REPORT ---
DATE: 06/10/2018. EXAM: CTA OF THE CHEST WITH CONTRAST. HISTORY: DIFFICULTY IN BREATHING. TECHNIQUE: CTA of the chest was performed after intravenous administration of 80 mL of Isovue 350 contrast material. Sagittal and coronal 3-dimensional MIP images were performed on an independent work station. COMPARISON: Chest x-ray performed today. FINDINGS: No mass or filling defect to suggest pulmonary embolism. There is cardiomegaly with coronary artery vascular calcification. No pericardial effusion. There are calcified mediastinal and hilar lymph nodes. There are calcified granulomas. Dense consolidation in the left lower lobe with air bronchograms. Focal nodular ground-glass opacity in the peripheral left upper lobe. This measures approximately 13 mm. Findings may be related to pneumonitis. Followup to resolution is recommended. The visualized upper abdominal structures are normal. There is splenic granulomatous disease. There is a small, sliding-type hiatal hernia. IMPRESSION: 1. NO CTA FINDINGS SUGGESTIVE OF PULMONARY EMBOLISM. 2. LEFT LOWER LOBE AIR SPACE CONSOLIDATION WITH AIR BRONCHOGRAMS. FOCAL GROUND -GLASS OPACITY IN THE ANTERIOR LEFT UPPER LOBE MEASURING 13 MM. SHORT-TERM FOLLOW-UP IMAGING IS RECOMMENDED AFTER ADEQUATE TREATMENT. 3. FINDINGS CONSISTENT WITH HEALED GRANULOMATOUS DISEASE. 4. CARDIOMEGALY WITH CORONARY ARTERY VASCULAR CALCIFICATION. 5. SMALL, SLIDING-TYPE HIATAL HERNIA. JOB NUMBER: [id number] [facility]
== END 2018-06-11 17:00 | DRG 812 ==
LOC: ER 06:15 → MEDSURG 08:21
PROVIDERS: ADMIT Internal Medicine; ATTEND Internal Medicine
DX: D64.9 Anemia, unspecified (principal); I50.9 Heart failure, unspecified; R79.89 Other specified abnormal findings of blood chemistry; I25.2 Old myocardial infarction; M19.90 Unspecified osteoarthritis, unspecified site; Z95.5 Presence of coronary angioplasty implant and graft; Z85.41 Personal history of malignant neoplasm of cervix uteri; Z89.431 Acquired absence of right foot; I73.9 Peripheral vascular disease, unspecified; Z87.891 Personal history of nicotine dependence
CPT/HCPCS: 36600; 71046; 71275; 80048; 80053; 82375; 82728; 82803; 83550; 83880; 84484; 85014; 85018; 85027; 85379; 86850; 86900; 86901; 90686; 93005; 93010; 93306; 94640; 94660; 94760; 94761; 97530; 99223; 99233; 99239; 99285; J0696; J1650; J7613

== ENCOUNTER 2018-12-26 21:28 | Emergency (ER) | payer BC ==
[2018-12-26] MEDS ORDERED: PROMETHAZINE HCL 6.25 MG in 0.9 % SODIUM CHLORIDE 100ML 100 ML IVPB ONE (22:33)
--- NOTE | 2018-12-26 23:10 | Emergency Department Record ---
History of Present Illness - General Chief Complaint: Back Pain/Injury Stated Complaint: NAUSEA/VOMITING, BACK PAIN Time Seen by Provider: 12/26/18 22:12 Source: Patient, EMS Mode of Arrival: Stretcher Limitations: Physical limitation - History of Present Illness Initial Comments: pt brought in by ems for increased back pain. she has chronic back pain but it has gotten worse the last day. she gets injections from a pain clinic. she thinks she might have overdone it yesterday. she also has had nausea and vomiting MD Complaint: Back pain -: Days(s) Place: Home Severity scale (1-10): 10 Quality: Sharp Consistency: Constant Worsens With: Movement Context: Unknown Associated Symptoms: Nausea/vomiting - Related Data Previous Rx's Medication Instructions Recorded Albuterol Sulfate 0.083% [Neb] 2.5 mg INH [id number] PRN #30 06/11/18 [Albuterol Sulfate] nebulization solution Guaifenesin [Mucinex] 600 mg PO BID #20 tabcr 06/11/18 Allergies Allergy/AdvReac Type Severity Reaction Status Date / Time No Known Drug Allergies Allergy Verified 12/26/18 21:37 Travel Screening - Travel/Exposure Within Last 30 Days Have you traveled within the last 30 days?: No - Travel Symptoms Symptom Screening: None Review of Systems Reviewed: No additional complaints except as noted below Constitutional: Reports: As per HPI. Denies: Chills, Fever, Malaise, Night sweats, Weakness, Weight change Eyes: Reports: As per HPI. Denies: Eye discharge, Eye pain, Photophobia, Vision change ENT: Reports: As per HPI. Denies: Congestion, Dental pain, Ear pain, Epistaxis, Hearing loss, Throat pain Respiratory: Reports: As per HPI. Denies: Cough, Dyspnea, Hemoptysis, Stridor, Wheezes Cardiovascular: Reports: As per HPI. Denies: Arrhythmia, Chest pain, Dyspnea on exertion, Edema, Murmurs, Orthopnea, Palpitations, Paroxysmal nocturnal dyspnea, Rheumatic Fever, Syncope Endocrine: Reports: As per HPI. Denies: Fatigue, Heat or cold intolerance, Polydipsia, Polyuria Gastrointestinal: Reports: As per HPI, Nausea, Vomiting. Denies: Abdominal pain, Constipation, Diarrhea, Hematemesis, Hematochezia, Melena Genitourinary: Reports: As per HPI. Denies: Abnormal menses, Discharge, Dyspareunia, Dysuria, Frequency, Hematuria, Incontinence, Retention, Urgency Musculoskeletal: Reports: As per HPI, Back pain. Denies: Arthralgia, Gout, Joint swelling, Myalgia, Neck pain Skin: Reports: As per HPI. Denies: Bruising, Change in color, Change in hair/nails, Lesions, Pruritus, Rash Neurological: Reports: As per HPI. Denies: Abnormal gait, Confusion, Headache, Numbness, Paresthesias, Seizure, Tingling, Tremors, Vertigo, Weakness Psychiatric: Reports: As per HPI. Denies: Anxiety, Auditory hallucinations, D epression, Homicidal thoughts, Suicidal thoughts, Visual hallucinations Hematological/Lymphatic: Reports: As per HPI. Denies: Anemia, Blood Clots, Easy bleeding, Easy bruising, Swollen glands Past Medical History - SOCIAL HISTORY Smoking Status: Former smoker Alcohol Use: None Drug Use: None - RESPIRATORY Hx Respiratory Disorders: No - CARDIOVASCULAR Hx Cardio Disorders: Yes Hx Cardiac Cath: Yes (1 stent placed) Hx Heart Attack: Yes - NEURO Hx Neuro Disorders: No - GI Hx GI Disorders: No - Hx Genitourinary Disorders: No - ENDOCRINE Hx Endocrine Disorders: Yes Hx Thyroid Disease: Yes - MUSCULOSKELETAL Hx Musculoskeletal Disorders: Yes Hx Arthritis: Yes - PSYCH Hx Psych Problems: No - HEMATOLOGY/ONCOLOGY Hx Hematology/Oncology Disorders: Yes Hx Cancer: Yes (Cervical) Family Medical History Any Significant Family History?: Yes Hx Cancer: Brother/Sister Hx Diabetes: Brother/Sister *Diabetes Comment: sister DM Hx Heart Disease: Brother/Sister *Heart Comment: sister and brother Hx Stroke: Father Physical Exam - General General Appearance: Alert, Oriented x3, Cooperative, Mild distress - Head Head exam: Normal inspection - Eye Eye exam: Normal appearance, PERRL, EOMI Pupils: Normal accommodation - ENT ENT exam: Normal exam, Mucous membranes moist, Normal external ear exam, Normal orophraynx Ear exam: Normal external inspection. negative: External canal tenderness Nasal Exam: Normal inspection. negative: Discharge, Sinus tenderness Mouth exam: Normal external inspection, Tongue normal Teeth exam: Normal inspection. negative: Dental caries Throat exam: Normal inspection. negative: Tonsillar erythema, Tonsillar exudate - Neck Neck exam: Normal inspection, Full ROM. negative: Tenderness - Respiratory Respiratory exam: Normal lung sounds bilaterally. negative: Respiratory distress - Cardiovascular Cardiovascular Exam: Regular rate, Normal rhythm, Normal heart sounds - GI/Abdominal GI/Abdominal exam: Soft, Normal bowel sounds. negative: Tenderness - Rectal Rectal exam: Deferred - exam: Deferred - Extremities Extremities exam: Normal inspection, Full ROM, Normal capillary refill. negative: Tenderness - Back Back exam: Reports: Muscle spasm, Tenderness. Denies: Full ROM, Rash noted - Neurological Neurological exam: Alert, CN II-XII intact, Normal gait, Oriented X3 - Psychiatric Psychiatric exam: Normal affect, Normal mood - Skin Skin exam: Dry, Intact, Normal color, Warm Course Vital Signs 12/26/18 12/26/18 21:31 22:38 Temperature 97.8 F Pulse Rate 88 Pulse Rate [ 85 Pulse Ox Probe] Respiratory 18 Rate Blood Pressure 182/97 Blood Pressure 158/93 [Left Arm] Pulse Ox 96 97 - Reevaluation(s) Reevaluation #1: 12/27/18 00:16 pt sleeping soundly and appears better Medical Decision Making - Lab Data Result diagrams: 12/26/18 22:53 12/26/18 22:53 Disposition Disposition: Discharge Clinical Impression: Back pain Qualifiers: Back pain location: low back pain Chronicity: chronic Back pain laterality: right Sciatica presence: with sciatica Sciatica laterality: sciatica of right side Qualified Code(s): M54.41 - Lumbago with sciatica, right side; G89.29 - Other chronic pain Vomiting Qualifiers: Vomiting type: unspecified Vomiting Intractability: non-intractable Nausea p resence: with nausea Qualified Code(s): R11.2 - Nausea with vomiting, unspecified Disposition: Home, Self-Care Condition: (1) Good Instructions: Lumbar Radiculopathy (ED), Acute Nausea and Vomiting (ED) Additional Instructions: follow up with family doctor and with pain clinic. return sooner if worse. Forms: Patient Portal Access Quality - Quality Measures Quality Measures: N/A - Blood Pressure Screening Does Patient Have Any of the Following: Active Dx of HTN Blood Pressure Classification: Hypertensive Reading Systolic Measurement: 182 Diastolic Measurement: 97 Screening for High Blood Pressure: Patient Exclusion, Hx of HTN [G9744]
[2018-12-26 23:18] LABS: ABSOLUTE NEUTROPHIL COUNT 7.78; HEMATOCRIT 42.6 % (35.0-47.0); HEMOGLOBIN 13.3 gm/dl (11.6-16.0); MEAN CELL VOLUME 82.7 fl (81-97); MEAN CORPUSCULAR HEMOGLOBIN 25.8 pg (27-33); MEAN CORPUSCULAR HGB CONC 31.2 g/dl (32-36); MEAN PLATELET VOLUME 10.1 fl (7.4-10.4); PLATELET COUNT 284 K/uL (130-400); RED BLOOD COUNT 5.15 M/uL (3.80-5.40); RED CELL DISTRIBUTION WIDTH 19.2 % (11.5-14.5); WHITE BLOOD COUNT W/O DIFF 9.8 K/uL (4.2-12.2)
[2018-12-26 23:22] LABS: BLOOD UREA NITROGEN 13 mg/dL (8-23)
[2018-12-26 23:23] LABS: CREATININE 0.4 mg/dL (0.5-0.9); EST GLOMERULAR FILTRATION RATE > 60 mL/min
[2018-12-26 23:25] LABS: GLUCOSE,RANDOM 109 mg/dL (74-109)
[2018-12-26] MEDS ORDERED: KETOROLAC 30 MG/ML VIAL IVP ONE (23:33)
[2018-12-26 23:58] LABS: ANISOCYTOSIS 1+; PLATELET ESTIMATE NORMAL (NORMAL)
[2018-12-27] MEDS ORDERED: LIDOCAINE 5% PATCH TOP ONE (00:22)
--- NOTE | 2018-12-29 10:33 | RADIOLOGY REPORT ---
EXAM: LUMBAR SPINE, AP AND LATERAL VIEWS HISTORY: BACK PAIN BEGINNING THREE DAYS AGO. NAUSEA AND VOMITING. TECHNIQUE: AP and lateral views of the lumbar spine were obtained. Comparison: Two views of the lumbar spine dated 04/14/17. FINDINGS: There are five non-rib bearing lumbar type vertebra. There is normal bone mineralization. Mild dextroconvex scoliosis is redemonstrated centered at the L3-L4 level, stable. There is straightening of the normal lumbar lordosis. Minimal anterolisthesis of L4 on L5 is stable. The vertebral bodies are otherwise grossly normal in alignment and height. No acute fracture is seen. No lytic or blastic bone lesion. Moderate multilevel degenerative disk/degenerative end plate changes are identified. These are most pronounced on the left at the mid level. Multilevel facet arthropathy is suspected most pronounced at the lower levels where it is moderate to severe. There is mild diffuse atherosclerosis. There is mild ectasia of the distal abdominal aorta measuring 2.6 cm. A right common iliac stent is suggested. Punctate calcifications are scattered within the left upper abdomen consistent with healed granulomatous disease within the spleen. IMPRESSION: 1. STABLE RADIOGRAPHIC APPEARANCE OF THE LUMBAR SPINE GIVEN DIFFERENCES IN TECHNIQUE. 2. MULTILEVEL DEGENERATIVE CHANGES REDEMONSTRATED ASSOCIATED WITH DEXTROCONVEX SCOLIOSIS, STRAIGHTENING OF THE NORMAL LUMBAR LORDOSIS AND GRADE 1 ANTEROLISTHESIS OF L4 ON L5. JOB NUMBER: [id number] MTDD
== END 2018-12-27 00:44 | disposition home or self-care (01) ==
LOC: ER 21:28
DX: G89.29 Other chronic pain (principal); M54.5 Low back pain; R11.2 Nausea with vomiting, unspecified; I25.2 Old myocardial infarction; Z87.891 Personal history of nicotine dependence
CPT/HCPCS: 72100; 80048; 84484; 85027; 93005; 93010; 96365; 96375; 99284; J1885; J2550

== ENCOUNTER 2019-01-27 12:20 | Observation (INO) | payer BC ==
--- NOTE | 2019-01-27 12:48 | Emergency Department Record ---
History of Present Illness - General Chief complaint: Lower Extremity Pain Stated complaint: THIGH PAIN Time Seen by Provider: 01/27/19 12:31 Source: Patient Mode of Arrival: EMS Limitations: No limitations - History of Present Illness Initial comments: The patient is here due to R buttock pain for a few days that got worse in the last 24 hours. She has had chronic R sided back pain that she was at PT for this week. The patient also may have fallen a few weeks ago. She denies any AP, CP, SOB, dysuria, fever, chills, vomiting or diarrhea. MD Complaint: Extremity pain Onset/Timin -: Days(s) Location: Right, Lower Leg, Thigh History of Same: No Severity scale (1-10): 10 Quality: Sharp, Stabbing Consistency: Constant Improves with: Nothing Worsens with: Palpation Associated Symptoms: Denies other symptoms - Related Data Allergies Allergy/AdvReac Type Severity Reaction Status Date / Time No Known Drug Allergies Allergy Verified 01/27/19 12:23 Travel Screening - Travel/Exposure Within Last 30 Days Have you traveled within the last 30 days?: No Review of Systems Constitutional: Denies: Chills, Fever Eyes: Denies: Eye discharge ENT: Denies: Congestion Respiratory: Denies: Cough, Dyspnea Past Medical History - SOCIAL HISTORY Smoking Status: Former smoker Alcohol Use: None Drug Use: None - RESPIRATORY Hx Respiratory Disorders: No - CARDIOVASCULAR Hx Cardio Disorders: Yes Hx Cardiac Cath: Yes (1 stent placed) Hx Heart Attack: Yes - NEURO Hx Neuro Disorders: No - GI Hx GI Disorders: No - Hx Genitourinary Disorders: No - ENDOCRINE Hx Endocrine Disorders: Yes Hx Thyroid Disease: Yes - MUSCULOSKELETAL Hx Musculoskeletal Disorders: Yes Hx Arthritis: Yes - PSYCH Hx Psych Problems: No - HEMATOLOGY/ONCOLOGY Hx Hematology/Oncology Disorders: Yes Hx Cancer: Yes (Cervical) Family Medical History Any Significant Family History?: Yes Hx Cancer: Brother/Sister Hx Diabetes: Brother/Sister *Diabetes Comment: sister DM Hx Heart Disease: Brother/Sister *Heart Comment: sister and brother Hx Stroke: Father Physical Exam - General General Appearance: Alert, Oriented x3, Cooperative, Mild distress (Due to R buttock pain.) - Head Head exam: Atraumatic, Normocephalic - Eye Eye exam: Normal appearance, PERRL - ENT Throat exam: Normal inspection. negative: Tonsillar erythema, Tonsillar exudate - Neck Neck exam: Normal inspection, Full ROM. negative: Tenderness - Respiratory Respiratory exam: Normal lung sounds bilaterally. negative: Respiratory distress - Cardiovascular Cardiovascular Exam: Regular rate, Normal rhythm, Normal heart sounds - GI/Abdominal GI/Abdominal exam: Soft, Normal bowel sounds. negative: Rebound, Rigid, Tenderness - Extremities Extremities exam: Full ROM, Other (The pain is very reproducible with palpation of the R buttock. There is no swelling, bruising, or erythema present.). 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 Denies: Vertebral tenderness - Neurological Neurological exam: Alert. negative: Motor sensory deficit Course Vital Signs 01/27/19 12:23 Temperature 97.5 F L Pulse Rate 91 H Respiratory 17 Rate Blood Pressure 135/73 Pulse Ox 92 L - Reevaluation(s) Reevaluation #1: The patient is doing a little better at this time. She is presently resting comfortably. 01/27/19 14:44 Reevaluation #2: Now the patient states the pain is returning and she is very upset about not feeling well. I did discuss the plan to keep her in the hospital overnight and she agrees with the plan. I then did discuss the case with Arianne ([facility]) and she does accept the patient for admission. 01/27/19 15:28 Medical Decision Making - Data Complexity MDM Data: Labs Ordered and/or Reviewed, X-Ray Ordered and/or Reviewed - Lab Data Result diagrams: 01/27/19 13:30 01/27/19 13:30 - Radiology Data Radiology results: Report reviewed (Pelvis xray: neg for any acute changes.) Disposition Disposition: Admit Clinical Impression: Dehydration, Generalized weakness, Phantom pain after amputation of lower extremity Disposition: Still a Patient at [facility] Decision to Admit: Admit from ER Decision to Admit Date: 01/27/19 Decision to Admit Time: 15:29 Accepting Physician: Latasha Time Discussed w/Accepting Physician: 15:29 Condition: (2) Stable Forms: Patient Portal Access Time of Disposition: 15:29 Quality - Quality Measures Quality Measures: N/A - Blood Pressure Screening View Details: Yes Does Patient Have Any of the Following: No Blood Pressure Classification: Pre-Hypertensive BP Reading Systolic Measurement: 135 Diastolic Measurement: 73 Screening for High Blood Pressure: < Pre-Hypertensive BP, F/U Documented > [G8950] Pre-Hypertensive Follow-up Interventions: Referral to alternative/primary care provider.
[2019-01-27] MEDS ORDERED: ACETAMINOPHEN 1,000 MG/100 ML BTL IVPB ONE (12:54)
[2019-01-27 13:46] LABS: ABSOLUTE NEUTROPHIL COUNT 4.32; BASO % 0.2 % (0-6); EOS % 1.4 % (0-6); GRAN % 77.1 % (47-80); HEMATOCRIT 40.8 % (35.0-47.0); HEMOGLOBIN 12.4 gm/dl (11.6-16.0); LYMPH % 11.9 % (16-45); MEAN CELL VOLUME 85.9 fl (81-97); MEAN CORPUSCULAR HEMOGLOBIN 26.1 pg (27-33); MEAN CORPUSCULAR HGB CONC 30.4 g/dl (32-36); MEAN PLATELET VOLUME 8.7 fl (7.4-10.4); MONO % 9.4 % (0-9); PLATELET COUNT 306 K/uL (130-400); RED BLOOD COUNT 4.75 M/uL (3.80-5.40); RED CELL DISTRIBUTION WIDTH 18.2 % (11.5-14.5); WHITE BLOOD COUNT W/O DIFF 5.6 K/uL (4.2-12.2)
[2019-01-27 13:57] LABS: BLOOD UREA NITROGEN 14 mg/dL (8-23); CREATININE 0.4 mg/dL (0.5-0.9); EST GLOMERULAR FILTRATION RATE > 60 mL/min
[2019-01-27 13:58] LABS: TOTAL PROTEIN 6.6 g/dL (6.6-8.7)
[2019-01-27 14:00] LABS: GLUCOSE,RANDOM 100 mg/dL (74-109)
[2019-01-27 14:02] LABS: ALT/SGPT 9 U/L (<33)
[2019-01-27 14:03] LABS: ALB/GLOB RATIO 1.4 (1.1-1.8); ALBUMIN 3.9 g/dL (4.0-5.0); ALKALINE PHOSPHATASE 122 U/L (35-104); AST/SGOT 13 U/L (10.0-35.0)
[2019-01-27 14:04] LABS: URINE APPEARANCE SL CLOUDY; URINE BILIRUBIN SMALL (NEGATIVE); URINE BLOOD NEGATIVE (NEGATIVE); URINE COLOR YELLOW; URINE GLUCOSE (UA) NEGATIVE (NEGATIVE); URINE KETONE 40 mg/dL (NEGATIVE); URINE LEUKOCYTE ESTERASE MODERATE (NEGATIVE); URINE NITRITE POSITIVE (NEGATIVE); URINE PROTEIN NEGATIVE (NEGATIVE); URINE UROBILINOGEN 0.2 E.U./dL (0.20 - 1.00)
[2019-01-27] MEDS ORDERED: KETOROLAC 30 MG/ML VIAL IVP ONE (14:12)
[2019-01-27] MEDS ORDERED: 0.9 % SODIUM CHLORIDE 1,000 ML BAG IV ONE (14:15)
[2019-01-27 14:16] LABS: URINE BACTERIA 3+; URINE RBC NONE SEEN (NONE SEEN)
[2019-01-27] MEDS ORDERED: NITROFURANTOIN MONO 100 MG CAPSULE PO ONE (14:37)
[2019-01-27] MEDS ORDERED: MORPHINE SULFATE 10MG/1ML **1ML VIAL IVP ONE (15:15)
[2019-01-27] MEDS ORDERED: ONDANSETRON HCL IV 4 MG/2 ML VIAL IVP PRN (16:54)
[2019-01-27] MEDS ORDERED: ACETAMINOPHEN 1,000 MG/100 ML BTL IVPB SCH (16:54)
[2019-01-27] MEDS: NITROFURANTOIN MONO 100 MG CAPSULE PO SCH ×2 (16:54→21:48)
[2019-01-27] MEDS: 0.9 % SODIUM CHLORIDE 1000ML 1,000 ML IV PRN ×2 (16:55→23:16)
[2019-01-27] MEDS: ACETAMINOPHEN 325 MG TAB PO PRN (21:47)
[2019-01-27] MEDS: ATORVASTATIN 20 MG TABLET PO SCH (21:47)
[2019-01-27] MEDS: DOCUSATE SODIUM 100 MG CAPSULE PO PRN (21:47)
[2019-01-28] MEDS: ACETAMINOPHEN 325 MG TAB PO PRN ×3 (04:43→20:55)
[2019-01-28] MEDS: HYDROCODONE/APAP 5/325MG TABLET PO PRN ×2 (04:43→17:19)
[2019-01-28] MEDS: MORPHINE SULFATE 10MG/1ML **1ML VIAL IVP PRN ×3 (05:30→20:51)
[2019-01-28 06:17] LABS: ABSOLUTE NEUTROPHIL COUNT 3.16; BASO % 0.4 % (0-6); EOS % 2.1 % (0-6); GRAN % 67.2 % (47-80); HEMATOCRIT 36.2 % (35.0-47.0); HEMOGLOBIN 10.9 gm/dl (11.6-16.0); LYMPH % 19.4 % (16-45); MEAN CELL VOLUME 87.4 fl (81-97); MEAN CORPUSCULAR HEMOGLOBIN 26.3 pg (27-33); MEAN CORPUSCULAR HGB CONC 30.1 g/dl (32-36); MONO % 10.9 % (0-9); PLATELET COUNT 257 K/uL (130-400); RED BLOOD COUNT 4.14 M/uL (3.80-5.40); RED CELL DISTRIBUTION WIDTH 18.1 % (11.5-14.5); WHITE BLOOD COUNT W/O DIFF 4.7 K/uL (4.2-12.2)
[2019-01-28] MEDS: CYCLOBENZAPRINE 10MG TABLET PO PRN ×2 (07:05→13:20)
[2019-01-28] MEDS: LEVOTHYROXINE SODIUM 25 MCG TABLET PO SCH (07:05)
[2019-01-28] MEDS: GABAPENTIN 100 MG CAPSULE PO SCH ×2 (10:42→21:42)
[2019-01-28] MEDS: DOCUSATE SODIUM 100 MG CAPSULE PO PRN ×2 (10:43→21:42)
[2019-01-28] MEDS: ASPIRIN 325 MG TAB ENTERIC-COATED PO SCH (10:43)
[2019-01-28] MEDS: CLOPIDOGREL 75MG TABLET PO SCH (10:43)
[2019-01-28] MEDS: NITROFURANTOIN MONO 100 MG CAPSULE PO SCH ×2 (10:43→21:41)
--- NOTE | 2019-01-28 11:47 | RADIOLOGY REPORT ---
EXAM: PELVIS, COMPLETE 3 VIEWS HISTORY: SEVERE RIGHT HIP PAIN FOR TWO DAYS. FALL ONE WEEK AGO. TECHNIQUE: Three views of the pelvis. COMPARISON: Two-view radiographic examination of the lumbar spine dated 12/26/18. ENCOUNTER: Initial. FINDINGS: There is mild diffuse osteopenia. No acute fracture nor dislocation. There are moderate osteoarthritic changes of the right hip and mild osteoarthritic changes of the left hip. Mild to moderate degenerative changes of the lower lumbar spine. A vascular stent is noted at the expected level of the right common iliac artery. A vascular stent is also partially imaged within the proximal right thigh. Vascular calcifications are scattered throughout the pelvis and proximal thighs. IMPRESSION: 1. NO ACUTE FRACTURE NOR DISLOCATION. 2. OSTEOARTHRITIC CHANGES OF THE HIPS, MODERATE ON THE RIGHT AND MILD ON THE LEFT. 3. SYMMETRIC SACROILIAC JOINTS. 4. DEGENERATIVE CHANGES THROUGHOUT THE LOWER LUMBAR SPINE REDEMONSTRATED. JOB NUMBER: [id number] MTDD
--- NOTE | 2019-01-28 11:59 | History & Physical ---
History of Present Illness - Date of Service Date of Service for History & Physical: 01/28/19 - History of Present Illness Admitting Diagnosis: 1. Generalized Weakness with R hip pain and dehydration. History of Present Illness: 83 year old female patient presented to ER for evaluation of sudden onset worsening of right hip/buttock pain with radiation down her right thigh. Patient noted symptoms to begin Alfredo and progressively worsen throughout the day. Patient denied any injury or trauma prior to the onset of symptoms. States she takes Acetaminophen and Neurontin at home for pain control. Reports an extensive history of chronic back and hip pain, with previous treatment at the pain clinic. Patient denies chest pain, shortness of breath, fever, chills, weakness, nausea, or vomiting. States she also noted dark urine a few days prior to admission. Patient lives home alone currently. Previously her son lived in the basement, but was taken to [facility] 2 weeks ago. Patient reports mild difficulty getting around in the home with her wheelchair. 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 PCP: Dr. Chen ED Course: VS: temp 97.5F, HR 91, RR 17, BP 135/73, Pulse ox 93% UA: positive nitrites, Ketones, mod leuk, 10-15 WBC WBC 5.6, CMP unremarkable Pelvix x-ray: no acute fracture, moderate osteoarthritic changes on the right, lumbar spine degenerative changes Morphine IV fluids 75ml/hr 01/28/19: Patient A&O x 4, uncomfortable in bed at this time. Patient reports pain 2/10 from 4pm yesterday until 4am today, when the pain became an 8/10 again. Patient has received morphine, norco, and cyclobenzaprine with minimal relief of symptoms. Travel Screening - Travel/Exposure Within Last 30 Days Have you traveled within the last 30 days?: No - Travel/Exposure Within Last Year Have you traveled outside the [place] in the last year?: No - Additonal Travel Details Have you been exposed to anyone with a communicable illness?: No Review of Systems Reviewed: No additional complaints except as noted below Constitutional: Denies: Chills, Fever Eyes: Denies: Eye discharge ENT: Denies: Congestion Respiratory: Denies: Cough, Dyspnea Musculoskeletal: Reports: Back pain Past Medical History - SOCIAL HISTORY Smoking Status: Former smoker Alcohol Use: None Drug Use: None - RESPIRATORY Hx Respiratory Disorders: No - CARDIOVASCULAR Hx Cardio Disorders: Yes Hx Cardiac Cath: Yes (1 stent placed) Hx Heart Attack: Yes - NEURO Hx Neuro Disorders: No - GI Hx GI Disorders: No - Hx Genitourinary Disorders: No - ENDOCRINE Hx Endocrine Disorders: Yes Hx Diabetes: No Hx Thyroid Disease: Yes - MUSCULOSKELETAL Hx Musculoskeletal Disorders: Yes Hx Arthritis: Yes - PSYCH Hx Psych Problems: No - HEMATOLOGY/ONCOLOGY Hx Hematology/Oncology Disorders: Yes Hx Cancer: Yes (Cervical) Family Medical History Any Significant Family History?: Yes Hx Cancer: Brother/Sister Hx Diabetes: Brother/Sister *Diabetes Comment: sister DM Hx Heart Disease: Brother/Sister *Heart Comment: sister and brother Hx Stroke: Father H&P Meds/Allergies - Allergies Allergies: Allergies Allergy/AdvReac Type Severity Reaction Status Date / Time No Known Drug Allergies Allergy Verified 01/27/19 12:23 - Home Medications Home Medications Medication Instructions Recorded Confirmed Last Taken Gabapentin [Neurontin] 100 mg PO 01/27/19 Unknown Gabapentin [Neurontin] 400 mg PO DAILY 01/27/19 01/27/19 01/27/19 - Active Medications Active Medications: Current Medications Acetaminophen (Tylenol 325mg) 650 mg PO Q6H PRN PRN Reason: PAIN - MILD(1-4)/FEVER Last Admin: 01/28/19 04:43 Dose: 650 mg Documented by: Hydrocodone Bitart/Acetaminophen ([place] 5mg/325mg) 1 each PO Q6H PRN PRN Reason: PAIN - MOD TO SEVERE (5-10) Last Admin: 01/28/19 04:43 Dose: 1 each Documented by: Aspirin (Ecotrin (Ec)) 325 mg PO DAILY [facility] Last Admin: 01/28/19 10:43 Dose: 325 mg Documented by: Atorvastatin Calcium (Lipitor) 40 mg PO QHS [facility] Last Admin: 01/27/19 21:47 Dose: 40 mg Documented by: Clopidogrel Bisulfate (Plavix) 75 mg PO DAILY [facility] Last Admin: 01/28/19 10:43 Dose: 75 mg Documented by: Cyclobenzaprine HCl (Flexeril) 5 mg PO TID PRN PRN Reason: MUSCLE SPASMS Last Admin: 01/28/19 07:05 Dose: 5 mg Documented by: Docusate Sodium (Colace) 100 mg PO ASDIR PRN PRN Reason: Constipation Last Admin: 01/28/19 10:43 Dose: 100 mg Documented by: Gabapentin (Neurontin) 100 mg PO BID [facility] Last Admin: 01/28/19 10:42 Dose: 100 mg Documented by: Sodium Chloride () 1,000 mls @ 75 mls/hr IV .[id number] PRN PRN Reason: LARGE VOLUME IV Last Admin: 01/27/19 23:16 Dose: 75 mls/hr Documented by: Levothyroxine Sodium (Synthroid) 25 mcg PO 0600 [facility] Last Admin: 01/28/19 07:05 Dose: 25 mcg Documented by: Morphine Sulfate (Morphine Sulfate) 2 mg IVP Q4H PRN PRN Reason: PAIN - MOD TO SEVERE (5-10) Last Admin: 01/28/19 10:43 Dose: 2 mg Documented by: Nitrofurantoin Macrocrystals (Macrobid) 100 mg PO BID [facility] Last Admin: 01/28/19 10:43 Dose: 100 mg Documented by: Ondansetron HCl (Zofran) 4 mg IVP Q6H PRN PRN Reason: NAUSEA Physical Exam - Vital Signs Vital Signs: Vital Signs - Last 24 Hrs Temp Pulse Pulse Resp BP BP BP 01/28/19 11:07 97.7 F 67 18 121/40 01/28/19 09:00 18 01/28/19 07:25 98.2 F 71 18 142/59 01/28/19 04:47 97.8 F 82 18 144/58 01/27/19 23:38 97.8 F 70 18 136/56 01/27/19 20:24 82 18 01/27/19 20:00 98.8 F 82 18 121/58 01/27/19 16:54 98 F 65 16 129/46 01/27/19 16:39 92 H 16 136/84 01/27/19 16:13 92 H 16 136/84 01/27/19 14:28 52 L 18 154/72 01/27/19 12:23 97.5 F L 91 H 17 135/73 Pulse Ox 01/28/19 11:07 86 L 01/28/19 09:00 01/28/19 07:25 84 L 01/28/19 04:47 94 L 01/27/19 23:38 95 01/27/19 20:24 01/27/19 20:00 89 L 01/27/19 16:54 91 L 01/27/19 16:39 94 L 01/27/19 16:13 94 L 01/27/19 14:28 93 L 01/27/19 12:23 92 L - General General Appearance: Alert, Oriented x3, Cooperative, Mild distress (Due to R buttock pain.) Limitations: No limitations - Head Head exam: Atraumatic, Normocephalic - Eye Eye exam: Normal appearance, PERRL - ENT ENT exam: Normal exam, Mucous membranes moist, Normal external ear exam Throat exam: Normal inspection. negative: Tonsillar erythema, Tonsillar exudate - Neck Neck exam: Normal inspection, Full ROM. negative: Tenderness - Respiratory Respiratory exam: Normal lung sounds bilaterally. negative: Respiratory distress - Cardiovascular Cardiovascular Exam: Regular rate, Normal rhythm, Normal heart sounds Peripheral Pulses: 2+: Radial (R), Radial (L) - GI/Abdominal GI/Abdominal exam: Soft, Normal bowel sounds. negative: Rebound, Rigid, Tenderness - Extremities Extremities exam: Full ROM, Other (The pain is very reproducible with palpation of the R buttock. There is no swelling, bruising, or erythema present.). negative: Normal inspection (There is a R BKA.) - Back Back exam: Reports: Normal inspection, Muscle spasm. Denies: Vertebral tenderness - Neurological Neurological exam: Alert, Oriented X3. negative: Motor sensory deficit - Psychiatric Psychiatric exam: Anxious - Skin Skin exam: Dry, Normal color, Warm Results - Labs Result Diagrams: 01/28/19 06:00 01/27/19 13:30 Labs Last 24 Hours: Laboratory Results - last 24 hr 01/27/19 01/27/19 01/27/19 13:30 13:30 14:00 WBC 5.6 RBC 4.75 Hgb 12.4 Hct 40.8 MCV 85.9 MCH 26.1 L MCHC 30.4 L RDW 18.2 H Plt Count 306 MPV 8.7 Gran % 77.1 Lymphocytes % 11.9 L Monocytes % 9.4 H Eosinophils % 1.4 Basophils % 0.2 Absolute Neutrophils 4.32 Sodium 141 Potassium 4.2 Chloride 102 Carbon Dioxide 26.0 Anion Gap 13.0 BUN 14 Creatinine 0.4 L Estimated GFR > 60 Random Glucose 100 Calcium 9.0 Total Bilirubin 0.50 AST 13 ALT 9 Alkaline Phosphatase 122 H Total Protein 6.6 Albumin 3.9 L Globulin 2.7 Albumin/Globulin Ratio 1.4 Urine Color Yellow Urine Appearance Sl cloudy Urine pH 7.5 Ur Specific [place] 1.015 Urine Protein Negative Urine Glucose (UA) Negative Urine Ketones 40 mg/dl H Urine Blood Negative Urine Nitrite Positive H Urine Bilirubin Small H Urine Urobilinogen 0.2 Ur Leukocyte Esterase Moderate H Urine RBC None seen Urine WBC 10 - 15 Ur Epithelial Cells 3 - 6 Urine Bacteria 3+ 01/28/19 06:00 WBC 4.7 RBC 4.14 Hgb 10.9 L Hct 36.2 MCV 87.4 MCH 26.3 L MCHC 30.1 L RDW 18.1 H Plt Count 257 MPV 9.0 Gran % 67.2 Lymphocytes % 19.4 Monocytes % 10.9 H Eosinophils % 2.1 Basophils % 0.4 Absolute Neutrophils 3.16 Sodium Potassium Chloride Carbon Dioxide Anion Gap BUN Creatinine Estimated GFR Random Glucose Calcium Total Bilirubin AST ALT Alkaline Phosphatase Total Protein Albumin Globulin Albumin/Globulin Ratio Urine Color Urine Appearance Urine pH Ur Specific [place] Urine Protein Urine Glucose (UA) Urine Ketones Urine Blood Urine Nitrite Urine Bilirubin Urine Urobilinogen Ur Leukocyte Esterase Urine RBC Urine WBC Ur Epithelial Cells Urine Bacteria - Imaging and Cardiology Pelvis X-ray Status: Report reviewed VTE H&P Assessment - Risk for VTE Risk for VTE: Yes Risk Level: Moderate Risk Assessment Date: 01/28/19 Risk Assessment Time: 13:02 VTE Orders Placed or Will Be Placed: Yes Plan - Detailed Diagnosis and Plan (1) UTI (lower urinary tract infection) Current Visit: No Status: Acute Base Code: N39.0 - URINARY TRACT INFECTION, SITE NOT SPECIFIED Comment: 01/28/19: - UA: positive nitrites, mod leuks, 10-15 WBC - Urine culture pending - WBC 5.6 - Macrobid 100mg BID (2) Right-sided low back pain with sciatica Current Visit: Yes Status: Acute Base Code: M54.41 - LUMBAGO WITH SCIATICA, RIGHT SIDE Comment: 01/28/19: - Intractable right-sided hip and low-back pain with sciatica - Morphine 2mg IVP q4h prn, [place] 5/325mg PO q6h prn, Cyclobenzaprine 5mg PO TID prn - One time Solumedrol 125mg IVP (3) Dehydration Current Visit: Yes Status: Acute Base Code: E86.0 - DEHYDRATION Comment: 01/28/19: - Ketones noted in UA - NS 0.9% at 75ml/hr - Encourage PO hydration (4) DVT prophylaxis Current Visit: No Status: Acute Base Code: [id number] - Comment: 01/28/19: - Moderate risk due to age, hospitalization, and decreased mobility - Lovenox 40 mg daily. (5) Full code status Current Visit: No Status: Acute Base Code: Z78.9 - OTHER SPECIFIED HEALTH STATUS Comment: 01/28/19: - Full code status.
[2019-01-28] MEDS ORDERED: METHYLPREDNISOLONE PF 125MG/VIAL IVP ONE (12:50)
[2019-01-28] MEDS: 0.9 % SODIUM CHLORIDE 1000ML 1,000 ML IV PRN (13:29)
[2019-01-28] MEDS: DIAZEPAM 5 MG TABLET PO PRN (20:53)
[2019-01-28] MEDS: ATORVASTATIN 20 MG TABLET PO SCH (21:44)
[2019-01-28] MEDS: POLYETHYLENE GLY 17 GM PACKET PO SCH (21:46)
[2019-01-29] MEDS: HYDROCODONE/APAP 7.5/325MG TABLET PO PRN ×2 (01:18→10:45)
[2019-01-29] MEDS: 0.9 % SODIUM CHLORIDE 1000ML 1,000 ML IV PRN (03:10)
[2019-01-29] MEDS: LEVOTHYROXINE SODIUM 25 MCG TABLET PO SCH (06:30)
[2019-01-29] MEDS: DIAZEPAM 5 MG TABLET PO PRN ×2 (06:36→14:44)
[2019-01-29] MEDS: MORPHINE SULFATE 10MG/1ML **1ML VIAL IVP PRN (06:59)
[2019-01-29] MEDS ORDERED: METHYLPREDNISOLONE PF 125MG/VIAL IVP SCH (10:00)
[2019-01-29] MEDS ORDERED: ENOXAPARIN 40 MG/0.4 ML SYR SQ SCH (10:00)
[2019-01-29] MEDS: CLOPIDOGREL 75MG TABLET PO SCH (10:45)
[2019-01-29] MEDS: ASPIRIN 325 MG TAB ENTERIC-COATED PO SCH (10:45)
[2019-01-29] MEDS: POLYETHYLENE GLY 17 GM PACKET PO SCH (10:45)
[2019-01-29] MEDS: NITROFURANTOIN MONO 100 MG CAPSULE PO SCH (10:46)
[2019-01-29] MEDS: GABAPENTIN 100 MG CAPSULE PO SCH (10:46)
--- NOTE | 2019-01-29 11:44 | Discharge Summary ---
Providers Discharge Summary Date: 01/29/19 Date of admission: 01/27/19 16:18 Expected Date of Discharge: 01/29/19 Attending physician: TARA HOLM Primary care physician: FLORIN CHEN M.D. Physical Exam - Vital Signs Vital Signs: Vital Signs - Last 24 Hrs Temp Pulse Resp BP BP Pulse Ox 01/29/19 11:30 90 L 01/29/19 09:35 98.8 F 67 18 110/34 85 L 01/29/19 09:00 18 01/29/19 06:00 98.0 F 57 L 18 164/62 92 L 01/29/19 00:00 97.9 F 83 20 145/68 91 L 01/28/19 21:00 18 01/28/19 20:00 98.7 F 73 20 149/62 91 L 01/28/19 15:57 98.1 F 72 18 123/61 86 L - General General Appearance: Alert, Oriented x3, Cooperative, No acute distress Limitations: No limitations - Head Head exam: Atraumatic, Normocephalic - Eye Eye exam: Normal appearance, PERRL - ENT ENT exam: Normal exam, Mucous membranes moist, Normal external ear exam Throat exam: Normal inspection. negative: Tonsillar erythema, Tonsillar exudate - Neck Neck exam: Normal inspection, Full ROM. negative: Tenderness - Respiratory Respiratory exam: Normal lung sounds bilaterally. negative: Respiratory distress - Cardiovascular Cardiovascular Exam: Regular rate, Normal rhythm, Normal heart sounds Peripheral Pulses: 2+: Radial (R), Radial (L) - GI/Abdominal GI/Abdominal exam: Soft, Normal bowel sounds. negative: Rebound, Rigid, Tenderness - Extremities Extremities exam: Full ROM, Other (Mild pain with palpation of the R buttock. There is no swelling, bruising, or erythema present.). negative: Normal inspection (There is a R BKA.) - Back Back exam: Reports: Normal inspection, Muscle spasm. Denies: Vertebral tenderness - Neurological Neurological exam: Alert, Oriented X3. negative: Motor sensory deficit - Psychiatric Psychiatric exam: Anxious - Skin Skin exam: Dry, Normal color, Warm Hospitalization - Hospitalization Admission Diagnosis: 1. Generalized Weakness with R hip pain and dehydration. - Problem List/Discharge Diagnosis (1) UTI (lower urinary tract infection) Status: Acute Base Code: N39.0 - URINARY TRACT INFECTION, SITE NOT SPECIFIED Comment: 01/29/19: - UA: positive nitrites, mod leuks, 10-15 WBC - Urine culture pending, e-coli present - WBC 5.6 - Macrobid 100mg BID x 5 days (2) Right-sided low back pain with sciatica Status: Acute Base Code: M54.41 - LUMBAGO WITH SCIATICA, RIGHT SIDE Comment: 01/29/19: - Intractable right-sided hip and low-back pain with sciatica improved with [place], Morphine, Valium, Solumedrol - [place] 5/325mg PO q6h prn, Valium 2mg PO TID prn on dc - DC with prednisone 20mg daily x 3 days - Follow-up with PCP (3) Dehydration Status: Acute Base Code: E86.0 - DEHYDRATION Comment: 01/29/19: - Ketones noted in UA - NS 0.9% at 75ml/hr - Tolerating PO intake - Increase fluids at home (4) DVT prophylaxis Status: Acute Base Code: [id number] - Comment: 01/29/19: - Moderate risk due to age, hospitalization, and decreased mobility - Lovenox 40 mg daily while hospitalized (5) Full code status Status: Acute Base Code: Z78.9 - OTHER SPECIFIED HEALTH STATUS Comment: 01/29/19: - Full code status. - Hospitalization Course Disposition: Home, Self-Care Hospital Course: 83 year old female patient presented to ER for evaluation of sudden onset worsening of right hip/buttock pain with radiation down her right thigh. Patient noted symptoms to begin Alfredo and progressively worsen throughout the day. Patient denied any injury or trauma prior to the onset of symptoms. States she takes Acetaminophen and Neurontin at home for pain control. Reports an extensive history of chronic back and hip pain, with previous treatment at the pain clinic. Patient denies chest pain, shortness of breath, fever, chills, weakness, nausea, or vomiting. States she also noted dark urine a few days prior to admission. Patient lives home alone currently. Previously her son lived in the basement, but was [facility] to [facility] weeks ago. Patient reports mild difficulty getting around in the home with her wheelchair. 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 PCP: Dr. Chen ED Course: VS: temp 97.5F, HR 91, RR 17, BP 135/73, Pulse ox 93% UA: positive nitrites, Ketones, mod leuk, 10-15 WBC WBC 5.6, CMP unremarkable Pelvix x-ray: no acute fracture, moderate osteoarthritic changes on the right, lumbar spine degenerative changes Morphine IV fluids 75ml/hr 01/28/19: Patient A&O x 4, uncomfortable in bed at this time. Patient reports pain 2/10 from 4pm yesterday until 4am today, when the pain became an 8/10 again. Patient has received morphine, norco, and cyclobenzaprine with minimal relief of symptoms. 01/29/19: Patient A&O x 4, resting comfortably in bed. Pain significantly improved at this time. Will dc with prednisone, valium, and norco. Follow-up with PCP for further pain management. Continue 5 days of Macrobid for UTI. Procedures: Imaging and X-Rays 01/27/19 12:53 PELVIS, COMPLETE 3 VIEWS [RAD] Stat Abnormal Labs: Abnormal Lab Results 01/27/19 01/27/19 01/27/19 Range/Units 13:30 13:30 14:00 Hgb (11.6-16.0) gm/dl MCH 26.1 L (27-33) pg MCHC 30.4 L (32-36) g/dl RDW 18.2 H (11.5-14.5) % Lymphocytes % 11.9 L (16-45) % Monocytes % 9.4 H (0-9) % Creatinine 0.4 L (0.5-0.9) mg/dL Alkaline Phosphatase 122 H (35-104) U/L Albumin 3.9 L (4.0-5.0) g/dL Urine Ketones 40 mg/dl H (NEGATIVE) Urine Nitrite Positive H (NEGATIVE) Urine Bilirubin Small H (NEGATIVE) Ur Leukocyte Esterase Moderate H (NEGATIVE) 01/28/19 Range/Units 06:00 Hgb 10.9 L (11.6-16.0) gm/dl MCH 26.3 L (27-33) pg MCHC 30.1 L (32-36) g/dl RDW 18.1 H (11.5-14.5) % Lymphocytes % (16-45) % Monocytes % 10.9 H (0-9) % Creatinine (0.5-0.9) mg/dL Alkaline Phosphatase (35-104) U/L Albumin (4.0-5.0) g/dL Urine Ketones (NEGATIVE) Urine Nitrite (NEGATIVE) Urine Bilirubin (NEGATIVE) Ur Leukocyte Esterase (NEGATIVE) Condition at Discharge: (2) Stable VTE Discharge VTE Reason For No Overlap Therapy: Not Indicated Discharge Medications - Discharge Medications Prescriptions: Diazepam [Valium] 2 mg PO Q8HR PRN #15 tablet PRN Reason: Muscle Spasms Nitrofurantoin [place] [Macrobid] 100 mg PO BID #6 capsule Hydrocodone/APAP 7.5/325Mg [[place] 7.5MG/325Mg] 1 each PO Q6H PRN #15 tab PRN Reason: Pain - Mod To Severe (5-10) Prednisone [Prednisone 20Mg] 20 mg PO DAILY #3 tab Home Medications: Ambulatory Orders Aspirin [Aspirin EC] 325 mg PO DAILY 06/11/14 [Last Taken 01/26/19] Clopidogrel Bisulfate [Clopidogrel] 75 mg PO DAILY 06/11/14 [Last Taken 01/26/19] Docusate Sodium [Dulcolax Stool Softener] 100 mg PO ASDIR PRN 06/11/14 [Last Taken 01/26/19] Levothyroxine Sodium [Synthroid] 25 mcg PO DAILY 06/11/14 [Last Taken 01/26/19] Atorvastatin Calcium 40 mg PO QHS 07/18/17 [Last Taken 01/26/19] Gabapentin [Neurontin] 100 mg PO 01/27/19 [Last Taken Unknown] Diazepam [Valium] 2 mg PO Q8HR PRN #15 tablet 01/29/19 [Last Taken Unknown] Gabapentin [Neurontin] 100 mg PO BID capsule 01/29/19 [Last Taken Unknown] Hydrocodone/APAP 7.5/325Mg [[place] 7.5MG/325Mg] 1 each PO Q6H PRN #15 tab 01/29/19 [Last Taken Unknown] Nitrofurantoin [place] [Macrobid] 100 mg PO BID #6 capsule 01/29/19 [Last Taken Unknown] Prednisone [Prednisone 20Mg] 20 mg PO DAILY #3 tab 01/29/19 [Last Taken Unknown] Discharge Plan - Discharge Instructions Activity at Discharge: Increase Activity as Tolerated Diet at Discharge: Advance to Usual Diet Instructions: Dehydration (DC), Urinary Traction Infection in Older Adults (DC) Additional Instructions: -Your next dose of antibiotic (Macrobid) for the UTI is due tonight. You will take it twice a day until the antibiotics are gone. -Take the steroids once a day, starting tomorrow -Take the Valium for muscle spasms, as needed every 8 hours -Take the [place] as needed for pain every 6 hours -Do not take more than 3,000mg of Acetaminophen a day from Tylenol and [place] -Follow-up with Dr. Chen Quality Measures - Quality Measures Quality Measures: Advance Directives, Coronary Artery Disease: Antiplatelet Therapy, Documentation of Current Medications in Medical Record, Elder Maltreatment Screen and Follow-Up Plan, Heart Failure, Screening for High Blood Pressure and F/U Documented - Current Medications Quality Measure: Measure #130: Documentation of Current Medications Documentation of Current Medications: <Current Medications Documented/Reviewed> [N0481] - Blood Pressure Screening Quality Measure: Screening for High Blood Pressure and Follow-Up Documented Does Patient Have Any of the Following: Active Dx of HTN Blood Pressure Classification: Pre-Hypertensive BP Reading Systolic Measurement: 136 Diastolic Measurement: 84 Screening for High Blood Pressure: Patient Exclusion, Hx of HTN [G9034] - Coronary Artery Disease Quality Measure: Measure #6: Coronary Artery Disease (CAD) Antiplatelet Therapy: <ASA or clopidogrel prescribed> [8630F] - Heart Failure (FABIOLA/ARB Therapy) Quality Measure: Heart Failure Left Ventricular Systolic Function: Unknown FABIOLA Inhibitor or ARB Therapy for LVSD: Not Eligible - Heart Failure (Beta-tylor Therapy) Quality Measure: Heart Failure Left Ventricular Systolic Function: Unknown Beta-Tylor Therapy for LVEF < 40%: Not Eligible - Advance Directives Quality Measure: Measure #47: Care Plan Advance Directives Established: Yes Advance Directives Information Provided To Patient: Declined Advance Directives on File: No Living Will: Yes Power of Oil Burner Servicer And Installer: Yes Power of Oil Burner Servicer And Installer Name: Asaf Braun Advance Care Planning: <Care Plan/Decision Maker Documented; Discussed & Documented> [0721F] - Elder Abuse Suspicion Index Screening: Elder Abuse Suspicion Index Screening Rely on people for bathing, dressing, shopping, banking, etc: No Prevented from getting food, clothes, medication, etc: No Made to feel shamed or threatened by someone: No Forced to sign papers or use money against will: No Feel afraid, touched in ways not wanted or hurt physically: No Poor eye contact, withdrawn, malnourished, cuts or bruises: No Screening Result: Negative result EASI Reference Information: Denae CASTELAN, Jackelin Diaz, Stephanie Vegas, Bernice Davis.Development and validation of a tool to assist physicians identification of elder abuse: The Elder Abuse Suspicion Index (EASI ). Journal of Elder Abuse and Neglect, 2008; 20 (3): 276-300. - Elder Maltreatment Screen Quality Measures: Elder Maltreatment Screen and Follow-Up Plan Elder Maltreatment Screen: <Negative, No Follow-Up Plan Required> [G8734]
[2019-01-29] MEDS: ACETAMINOPHEN 325 MG TAB PO PRN (14:43)
== END 2019-01-29 14:45 | disposition home or self-care (01) ==
LOC: ER 12:20 → MEDSURG 16:18
PROVIDERS: ADMIT Internal Medicine; ATTEND Internal Medicine
DX: R53.1 Weakness (principal); E86.0 Dehydration; G54.6 Phantom limb syndrome with pain; N39.0 Urinary tract infection, site not specified; M54.41 Lumbago with sciatica, right side; Z89.511 Acquired absence of right leg below knee; E03.9 Hypothyroidism, unspecified; M19.90 Unspecified osteoarthritis, unspecified site; I25.2 Old myocardial infarction; Z87.891 Personal history of nicotine dependence; Z98.61 Coronary angioplasty status; Z85.41 Personal history of malignant neoplasm of cervix uteri
CPT/HCPCS: 72190; 80053; 81001; 85025; 94760; 96365; 96374; 96375; 99217; 99220; 99284; 99285; J1650; J1885; J2270; J2930; J7030